=== PATIENT | male | born 1975 | race Caucasian/White ===

== ENCOUNTER 2017-01-01 00:48 | Emergency (ER) | payer SELFPAY ==
[~2017-01-01] VITALS: Ht 167.6 cm; Wt 100.0 kg
[~2017-01-01 00:48] MED LIST: CHLO.12%30 SSP; GLYB5TAB3 PO; IBUP600T26 PO; PENI500T PO
[2017-01-01 00:50] VITALS: BP 134/96; PULSE 104; RESP 20; TEMP 97.5; O2SAT 98
[2017-01-01 02:21] VITALS: BP 131/83; PULSE 100; RESP 16; TEMP 98; O2SAT 97
[2017-01-01] MEDS ORDERED: SODIUM CHLOR 0.9% 1000 ML INJ 1,000 ML IV SCH (02:57)
[2017-01-01] MEDS ORDERED: SODIUM CHLORIDE 0.9% FLUSH 10 ML FLUSH IV FLUSH PRN (03:00)
[2017-01-01] MEDS ORDERED: ONDANSETRON HCL 4 MG/2 ML VIAL IVP ONE (03:00)
[2017-01-01] MEDS ORDERED: FAMOTIDINE 20 MG/2 ML VIAL IV PUSH ONE (03:00)
[2017-01-01 03:34] LABS: BLOOD, URINE NEG (NEG); COMMENT (UR) CULT NOT INDICATED; CULTURE IF INDICATED CULT NOT INDICATED; GLUCOSE,URINE 1000 mg/dL (NEG); KETONE, URINE 40 mg/dL (NEG); MUCUS URINE FEW /lpf (OCC); NITRITE,URINE NEG (NEG); URINE COLOR YELLOW (YELLW/STRAW)
[2017-01-01 03:35] LABS: AUTOMATED NEUTROPHIL # 6.6 TH/MM3 (1.8-7.7); BASOPHIL # 0.1 TH/MM3 (0-0.2); BASOPHIL % 0.8 % (0.0-2.0); EOSINOPHIL % 0.5 % (0.0-4.0); HEMATOCRIT 51.9 % (39.0-51.0); HEMO FLAGS DIFF FINAL; LYMPH % 13.9 % (9.0-44.0); LYMPHOCYTE # 1.2 TH/MM3 (1.0-4.8); MEAN CELL VOLUME 81.9 FL (80.0-100.0); MEAN CORPUSCULAR HEMOGLOBIN 28.7 PG (27.0-34.0); MEAN CORPUSCULAR HGB CONC 35.1 % (32.0-36.0); MONO % 7.4 % (0.0-8.0); NEUT % 77.4 % (16.0-70.0); PLATELET COUNT 259 TH/MM3 (150-450); RED BLOOD COUNT 6.34 MIL/MM3 (4.50-5.90); RED CELL DISTRIBUTION WIDTH 12.8 % (11.6-17.2); WHITE BLOOD COUNT 8.6 TH/MM3 (4.0-11.0)
[2017-01-01 03:39] LABS: APTT (PATIENT) 26.4 SEC (24.3-30.1); INTERNATIONAL NORMALIZED RATIO 1.1 RATIO; PROTHROMBIN TIME - PATIENT 11.8 SEC (9.8-11.6)
[2017-01-01 03:45] LABS: BICARBONATE 27.6 MEQ/L (21.0-32.0); POTASSIUM 3.5 MEQ/L (3.5-5.1)
[2017-01-01 03:47] LABS: INDIRECT BILIRUBIN 1.2 MG/DL (0.0-0.8); TOTAL BILIRUBIN ADULT 1.3 MG/DL (0.2-1.0)
[2017-01-01] MEDS ORDERED: IOHEXOL 350 MG/ML 10 ML VIAL (for RAD DIAG) IV ONE (04:21)
[2017-01-01] MEDS ORDERED: SODIUM CHLOR 0.9% 1000 ML INJ 1,000 ML IV ONE (04:30)
[2017-01-01 04:53] VITALS: BP 135/83; PULSE 80; RESP 18; TEMP 98.3; O2SAT 95
--- NOTE | 2017-01-01 05:04 | RADRPT ---
EXAM DATE/TIME: 01/01/2017 04:04 [place] COMPARISON: No previous studies available for comparison. INDICATIONS : Abdominal pain with nausea vomiting and diarrhea for five days IV CONTRAST: 100 cc Omnipaque 350 (iohexol) IV ORAL CONTRAST: No oral contrast ingested. RADIATION DOSE: 10.16 CTDIvol (mGy) MEDICAL HISTORY : Diabetes mellitus type 2. Essential tremors. SURGICAL HISTORY : Appendectomy. ENCOUNTER: Initial ACUITY: 4 - 6 days PAIN SCALE: 7/10 LOCATION: Diffuse abdomen TECHNIQUE: Volumetric scanning of the abdomen and pelvis was performed. Using automated exposure control and ad justment of the mA and/or kV according to patient size, radiation dose was kept as low as reasonably achievable to obtain optimal diagnostic quality images. FINDINGS: Lung bases are clear. There is mild fatty liver. Spleen, adrenals, kidneys and pancreas are unremarka ble. No calcified gallstones. No biliary ductal dilatation. Small hiatal hernia. There is a loop of small bowel in the left upper quadrant that is dilated to 3.5 cm with an air-fluid level. Other small bowel loops in the left upper quadrant are not as dilated. Distal small bowel is normal caliber. There is gas within the colon. No free fluid or free air. Small fat containing umbili amina hernia. CONCLUSION: 1. Mildly dilated loop of small bowel in the left upper quadrant with a diameter of 3.5 cm with an ai r-fluid level. Etiology unclear. This could represent a localized ileus. No inflammatory changes are seen within the abdomen and pelvis. No free air or free fluid. 2. Mild fatty liver. Small hiatal hernia. Small fat containing umbilical hernia. Luisito Calderon MD on January 01, 2017 at 4:53 Board Certified Radiologist. This report was verified electronically.
[2017-01-01] MEDS ORDERED: ONDANSETRON HCL 4 MG/2 ML VIAL IV PUSH ONE (05:45)
--- NOTE | 2017-01-01 06:08 | PD ---
HPI Chief Complaint: GI Complaint Time Seen by Provider: 02:36 Travel History International Travel<30 days: No Contact w/Intl Traveler<30days: No Traveled to known affect area: No History of Present Illness HPI Patient is a 41-year-old male comes in complaining of nausea and vomiting for the past 4 days. He says he has had a few bowel movements in the past 4 days and they have been diarrhea. He denies any abdominal pain, but says he's been having cramps. His reports that he has had a temperature of 99.6. He denies any chest pain or shortness of breath. He has history of diabetes, but is managing it with diet and exercise. PFSH Past Medical History Diabetes: Yes Patient Takes Glucophage: No Diminished Hearing: No Immunizations Current: Yes Tetanus Vaccination: < 5 Years Influenza Vaccination: No Past Surgical History Appendectomy: Yes Social History Alcohol Use: No Tobacco Use: Yes Substance Use: No Allergies-Medications (Allergen,Severity, Reaction): Coded Allergies: Glucophage (Verified Allergy, Severe, VOMITING, 01/01/17) Reported Meds & Prescriptions Reported Meds & Active Scripts Active Zofran Odt (Ondansetron Odt) 4 Mg Tab 4 Mg SL Q6HR PRN Review of Systems Except as stated in HPI: all other systems reviewed are Neg General / Constitutional: Positive: Fever HENT: No: Headaches, Lightheadedness Cardiovascular: No: Chest Pain or Discomfort Respiratory: No: Shortness of Breath Gastrointestinal: Positive: Nausea, Vomiting, Diarrhea Genitourinary: No: Dysuria, Flank Pain Musculoskeletal: No: Edema, Pain Skin: No Rash, No Change in Pigmentation Neurologic: No: Weakness, Dizziness Physical Exam Narrative GENERAL: Awake and alert, in no acute distress. SKIN: Focused skin assessment warm/dry. HEAD: Atraumatic. Normocephalic. EYES: Pupils equal and round. No scleral icterus. ENT: Mucous membranes pink and moist. NECK: Trachea midline. No JVD. CARDIOVASCULAR: Regular rate and rhythm. No murmur appreciated. RESPIRATORY: No accessory muscle use. Clear to auscultation. Breath sounds equal bilaterally. GASTROINTESTINAL: Abdomen soft, non-tender, nondistended. No CVA tenderness. MUSCULOSKELETAL: No obvious deformities. No clubbing. No cyanosis. No edema. NEUROLOGICAL: Awake and alert. No obvious cranial nerve deficits. Motor grossly within normal limits. Normal speech. PSYCHIATRIC: Appropriate mood and affect; insight and judgment normal. Data Data Last Documented VS Vital Signs Date Time Temp Pulse Resp B/P Pulse Ox O2 Delivery O2 Flow Rate FiO2 01/01/17 06:53 98.0 144/68 97 01/01/17 04:53 80 18 Room Air Orders Basic Metabolic Panel (Bmp) (01/01/17 02:57) Complete Blood Count With Diff (01/01/17 02:57) Lipase (01/01/17 02:57) Prothrombin Time / Inr (Pt) (01/01/17 02:57) Act Partial Throm Time (Ptt) (01/01/17 02:57) Urinalysis - C+S If Indicated (01/01/17 02:57) Ua Includes Microscopic (01/01/17 02:57) Ct Abd/Pel W Iv Contrast(Rout) (01/01/17 02:57) Iv Access Insert/Monitor (01/01/17 02:57) Ecg Monitoring (01/01/17 02:57) Oximetry (01/01/17 02:57) Ondansetron Inj (Zofran Inj) (01/01/17 03:00) Sodium Chlor 0.9% 1000 Ml Inj (Ns 1000 M (01/01/17 02:57) Sodium Chloride 0.9% Flush (Ns Flush) (01/01/17 03:00) Famotidine Inj (Pepcid Inj) (01/01/17 03:00) Hepatic Functional Panel (01/01/17 02:57) Iohexol 350 Inj (Omnipaque 350 Inj) (01/01/17 04:21) Sodium Chlor 0.9% 1000 Ml Inj (Ns 1000 M (01/01/17 04:30) Ondansetron Inj (Zofran Inj) (01/01/17 05:45) Labs Laboratory Tests Test 01/01/17 01/01/17 03:00 03:15 White Blood Count 8.6 TH/MM3 Red Blood Count 6.34 MIL/MM3 Hemoglobin 18.2 GM/DL Hematocrit 51.9 % Mean Corpuscular Volume 81.9 FL Mean Corpuscular Hemoglobin 28.7 PG Mean Corpuscular Hemoglobin 35.1 % Concent Red Cell Distribution Width 12.8 % Platelet Count 259 TH/MM3 Mean Platelet Volume 9.0 FL Neutrophils (%) (Auto) 77.4 % Lymphocytes (%) (Auto) 13.9 % Monocytes (%) (Auto) 7.4 % Eosinophils (%) (Auto) 0.5 % Basophils (%) (Auto) 0.8 % Neutrophils # (Auto) 6.6 TH/MM3 Lymphocytes # (Auto) 1.2 TH/MM3 Monocytes # (Auto) 0.6 TH/MM3 Eosinophils # (Auto) 0.0 TH/MM3 Basophils # (Auto) 0.1 TH/MM3 CBC Comment DIFF FINAL Differential Comment Prothrombin Time 11.8 SEC Prothromb Time International 1.1 RATIO Ratio Activated Partial 26.4 SEC Thromboplast Time Sodium Level 131 MEQ/L Potassium Level 3.5 MEQ/L Chloride Level 95 MEQ/L Carbon Dioxide Level 27.6 MEQ/L Anion Gap 8 MEQ/L Blood Urea Nitrogen 10 MG/DL Creatinine 0.90 MG/DL Estimat Glomerular Filtration 93 ML/MIN Rate Random Glucose 272 MG/DL Calcium Level 9.5 MG/DL Total Bilirubin 1.3 MG/DL Direct Bilirubin 0.1 MG/DL Indirect Bilirubin 1.2 MG/DL Aspartate Amino Transf 13 U/L (AST/SGOT) Alanine Aminotransferase 42 U/L (ALT/SGPT) Alkaline Phosphatase 115 U/L Total Protein 7.5 GM/DL Albumin 4.2 GM/DL Lipase 71 U/L Urine Color YELLOW Urine Turbidity CLEAR Urine pH 6.0 Urine Specific [place] 1.027 Urine Protein 30 mg/dL Urine Glucose (UA) 1000 mg/dL Urine Ketones 40 mg/dL Urine Occult Blood NEG Urine Nitrite NEG Urine Bilirubin NEG Urine Urobilinogen 2.0 MG/DL Urine Leukocyte Esterase NEG Urine WBC 2 /hpf Urine Mucus FEW /lpf Microscopic Urinalysis Comment CULT NOT INDICATED MDM Medical Decision Making Medical Screen Exam Complete: Yes Emergency Medical Condition: Yes Differential Diagnosis Gastroenteritis versus gastroparesis versus [place] as versus gastritis versus cholecystitis Narrative Course Patient is a 41-year-old male who comes in complaining of nausea, vomiting, diarrhea. Exam shows no acute abnormalities. IV established, labs sent. Labs show hemoglobin of 18, suggesting the patient is quite dehydrated. Glucose is 272. Patient given 2 L IV fluids. Given Zofran. Given famotidine. CT abdomen and pelvis performed shows one dilated loop of small bowel suggesting possible small area of ileus. There are no other abnormalities. Patient is passing gas and moving his bowels. He reports feeling better, but still with some nausea. Given second dose of Zofran. Reports feeling much better. Is drinking Gatorade without vomiting. will discharge with prescription for Zofran. Advised to drink plenty of fluids. Advised to eat a bland diet. Advised to follow up with his doctor. Advised to return to the ED as needed for any worsening symptoms. Diagnosis Primary Impression: Nausea & vomiting Qualified Code: R11.2 - Non-intractable vomiting with nausea, unspecified vomiting type Referrals: [facility] call for appointment Patient Instructions: Acute Nausea and Vomiting (ED), Diabetic Hyperglycemia ( ED), General Instructions Additional Instructions: Drink plenty of fluids. If you are hungry, eat a bland diet. Follow up with a primary care doctor. Return to the ED as needed for any worsening symptoms. Scripts Ondansetron Odt (Zofran Odt)4 Mg Tab4 Mg SL Q6HR PRN (Nausea/Vomiting) #12 TAB Ref 0 Prov:Darby Weinstein MD 01/01/17 Disposition: 01 DISCHARGE HOME Condition: Stable Darby Weinstein MD Jan 01, 2017 06:08
[2017-01-01] MEDS ORDERED: ZOFR4TAB3 SL (06:28)
[2017-01-01 06:53] VITALS: BP 144/68; TEMP 98
== END 2017-01-01 06:54 | disposition home or self-care (01) ==
LOC: NEPC 00:48
DX: R11.2 Nausea with vomiting, unspecified (principal); R19.7 Diarrhea, unspecified; E11.9 Type 2 diabetes mellitus without complications; Z72.0 Tobacco use
CPT/HCPCS: 74177; 80048; 80076; 81001; 83690; 85025; 85610; 85730; 96374; 96375; 96376; 99284; J2405; J7030; Q9967

== ENCOUNTER 2017-01-04 23:28 | Emergency (ER) | payer SELFPAY ==
[~2017-01-04] VITALS: Ht 162.6 cm; Wt 93.0 kg
[~2017-01-04 23:28] MED LIST changes: -CHLO.12%30 SSP; -GLYB5TAB3 PO; -IBUP600T26 PO; -PENI500T PO; +ZOFR4TAB3 SL
[2017-01-04 23:32] VITALS: BP 139/90; PULSE 102; RESP 16; TEMP 98.3; O2SAT 96
[2017-01-05] MEDS ORDERED: SODIUM CHLOR 0.9% 1000 ML INJ 1,000 ML IV SCH (00:11)
[2017-01-05] MEDS ORDERED: ONDANSETRON HCL 4 MG/2 ML VIAL IVP ONE (00:15)
[2017-01-05] MEDS ORDERED: SODIUM CHLORIDE 0.9% FLUSH 10 ML FLUSH IV FLUSH PRN (00:15)
[2017-01-05] MEDS ORDERED: DICYCLOMINE HCL 20 MG/2 ML VIAL IM ONE (00:15)
[2017-01-05 00:35] VITALS: O2SAT 96
[2017-01-05 00:36] LABS: AUTOMATED NEUTROPHIL # 7.6 TH/MM3 (1.8-7.7); BASOPHIL # 0.1 TH/MM3 (0-0.2); BASOPHIL % 0.6 % (0.0-2.0); EOSINOPHIL % 0.3 % (0.0-4.0); HEMATOCRIT 48.9 % (39.0-51.0); HEMO FLAGS DIFF FINAL; LYMPHOCYTE # 1.4 TH/MM3 (1.0-4.8); MEAN CELL VOLUME 81.8 FL (80.0-100.0); MEAN CORPUSCULAR HEMOGLOBIN 28.6 PG (27.0-34.0); MONO % 6.1 % (0.0-8.0); PLATELET COUNT 241 TH/MM3 (150-450); RED BLOOD COUNT 5.98 MIL/MM3 (4.50-5.90); RED CELL DISTRIBUTION WIDTH 12.8 % (11.6-17.2); WHITE BLOOD COUNT 9.6 TH/MM3 (4.0-11.0)
[2017-01-05] MEDS ORDERED: DICY10 PO (01:15)
[2017-01-05] MEDS ORDERED: REGL10TA5 PO (01:15)
--- NOTE | 2017-01-05 01:16 | PD ---
HPI Chief Complaint: GI Complaint Time Seen by Provider: 23:58 Travel History International Travel<30 days: No Contact w/Intl Traveler<30days: No Traveled to known affect area: No History of Present Illness HPI 41-year-old male arrives complaining of nausea vomiting for about 1 week. He was seen here a few days ago. The workup was essentially unremarkable. He was prescribed Zofran and has been taking it however reports no improvement. Decreased oral intake is reported. He notes vomiting about 10 times today. There is difficulty sleeping because of the nausea and vomiting. He notes sick contacts at work. He also reports feeling gassy. He has past medical history of diabetes. He smokes tobacco. He does not drink alcohol. He denies any drug abuse. Occasional diarrhea is reported. PFSH Past Medical History Diabetes: Yes (BEEN OFF MEDS FOR 3 YEARS) Patient Takes Glucophage: No Diminished Hearing: No Immunizations Current: Yes Past Surgical History Appendectomy: Yes Social History Alcohol Use: No Tobacco Use: Yes (1ppd) Substance Use: No Allergies-Medications (Allergen,Severity, Reaction): Coded Allergies: Glucophage (Verified Allergy, Severe, VOMITING, 01/04/17) Reported Meds & Prescriptions Reported Meds & Active Scripts Active Bentyl (Dicyclomine HCl) 10 Mg Cap 10 Mg PO TID PRN Reglan (Metoclopramide HCl) 10 Mg Tab 10 Mg PO QID PRN Zofran Odt (Ondansetron Odt) 4 Mg Tab 4 Mg SL Q6HR PRN Review of Systems Except as stated in HPI: all other systems reviewed are Neg Gastrointestinal: Positive: Nausea, Vomiting, Diarrhea Physical Exam Narrative GENERAL: 41-year-old male well-nourished well-developed SKIN: Focused skin assessment warm/dry. HEAD: Atraumatic. Normocephalic. EYES: Pupils equal and round. No scleral icterus. No injection or drainage. ENT: No nasal bleeding or discharge. Mucous membranes slightly dry. NECK: Trachea midline. No JVD. CARDIOVASCULAR: Regular rate and rhythm. No murmur appreciated. RESPIRATORY: No accessory muscle use. Clear to auscultation. Breath sounds equal bilaterally. GASTROINTESTINAL: Minimal tenderness. Nonspecific diffuse. MUSCULOSKELETAL: No obvious deformities. No clubbing. No cyanosis. No edema. NEUROLOGICAL: Awake and alert. No obvious cranial nerve deficits. Motor grossly within normal limits. Normal speech. PSYCHIATRIC: Appropriate mood and affect; insight and judgment normal. Data Data Last Documented VS Vital Signs Date Time Temp Pulse Resp B/P Pulse Ox O2 Delivery O2 Flow Rate FiO2 01/05/17 00:35 96 Room Air 01/04/17 23:32 98.3 102 16 139/90 Vital signs reviewed Orders Complete Blood Count With Diff (01/05/17 00:11) Comprehensive Metabolic Panel (01/05/17 00:11) Lipase (01/05/17 00:11) Iv Access Insert/Monitor (01/05/17 00:11) Ecg Monitoring (01/05/17 00:11) Oximetry (01/05/17 00:11) Ondansetron Inj (Zofran Inj) (01/05/17 00:15) Sodium Chlor 0.9% 1000 Ml Inj (Ns 1000 M (01/05/17 00:11) Sodium Chloride 0.9% Flush (Ns Flush) (01/05/17 00:15) Dicyclomine Inj (Bentyl Inj) (01/05/17 00:15) Labs Laboratory Tests Test 01/05/17 00:17 White Blood Count 9.6 TH/MM3 Red Blood Count 5.98 MIL/MM3 Hemoglobin 17.1 GM/DL Hematocrit 48.9 % Mean Corpuscular Volume 81.8 FL Mean Corpuscular Hemoglobin 28.6 PG Mean Corpuscular Hemoglobin 35.0 % Concent Red Cell Distribution Width 12.8 % Platelet Count 241 TH/MM3 Mean Platelet Volume 9.0 FL Neutrophils (%) (Auto) 79.0 % Lymphocytes (%) (Auto) 14.0 % Monocytes (%) (Auto) 6.1 % Eosinophils (%) (Auto) 0.3 % Basophils (%) (Auto) 0.6 % Neutrophils # (Auto) 7.6 TH/MM3 Lymphocytes # (Auto) 1.4 TH/MM3 Monocytes # (Auto) 0.6 TH/MM3 Eosinophils # (Auto) 0.0 TH/MM3 Basophils # (Auto) 0.1 TH/MM3 CBC Comment DIFF FINAL Differential Comment Sodium Level 133 MEQ/L Potassium Level 3.6 MEQ/L Chloride Level 97 MEQ/L Carbon Dioxide Level 26.6 MEQ/L Anion Gap 9 MEQ/L Blood Urea Nitrogen 12 MG/DL Creatinine 0.94 MG/DL Estimat Glomerular Filtration 89 ML/MIN Rate Random Glucose 257 MG/DL Calcium Level 9.2 MG/DL Total Bilirubin 0.9 MG/DL Aspartate Amino Transf 12 U/L (AST/SGOT) Alanine Aminotransferase 37 U/L (ALT/SGPT) Alkaline Phosphatase 113 U/L Total Protein 7.4 GM/DL Albumin 4.5 GM/DL Lipase 97 U/L MDM Medical Decision Making Medical Screen Exam Complete: Yes Emergency Medical Condition: Yes Medical Record Reviewed: Yes Differential Diagnosis Constipation, Gastritis, Acute Cholecystitis, Biliary Colic, Pancreatitis, PARR , Hepatitis, Bowel Obstruction, Cystitis, Mesenteric Ischemia, AAA, Appendicitis , Renal Stone/Hydronephrosis, GERD, perforated viscous Narrative Course CBC & BMP Diagram 01/05/17 00:17 LFTs normal Lipase normal Patient responded well to IV fluids and anti-emetics. Workup is unremarkable. Pt ready for discharge. Diagnosis Primary Impression: Nausea & vomiting Qualified Code: R11.2 - Nausea and vomiting, intractability of vomiting not specified, unspecified vomiting type Referrals: Primary Care Physician 2 days Additional Instructions: You have a choice when it comes to health care, and we are glad that you chose [facility]. Hopefully, we have met your expectations on today's visit. You are welcome to return to [facility] at any time, as we are committed to meeting the health care needs of our community. Med/Other Pt SpecificInfo: Prescription(s) given Scripts Dicyclomine (Bentyl)10 Mg Cap10 Mg PO TID PRN (Bowel Management) #20 CAP Ref 0 Prov:Ty Roa MD 01/05/17 Metoclopramide (Reglan)10 Mg Tab10 Mg PO QID PRN (NAUSEA OR VOMITING) #20 TAB Ref 0 Prov:Ty Roa MD 01/05/17 Disposition: DISCHARGE HOME Condition: Stable Ty Roa MD Jan 05, 2017 01:16
[2017-01-05 01:28] LABS: ALT (GPT) 37 U/L (12-78); ANION GAP 9 MEQ/L (5-15); AST (GOT) 12 U/L (15-37); BICARBONATE 26.6 MEQ/L (21.0-32.0); BLOOD UREA NITROGEN 12 MG/DL (7-18); CHLORIDE 97 MEQ/L (98-107); GLOMERULAR FILTRATION RATE 89 ML/MIN (>89); POTASSIUM 3.6 MEQ/L (3.5-5.1); SODIUM (NA) 133 MEQ/L (136-145)
[2017-01-05 01:30] LABS: ALKALINE PHOSPHATASE 113 U/L (45-117); TOTAL BILIRUBIN ADULT 0.9 MG/DL (0.2-1.0)
== END 2017-01-05 02:37 | disposition home or self-care (01) ==
LOC: NEPC 23:28
DX: R11.2 Nausea with vomiting, unspecified (principal); E11.9 Type 2 diabetes mellitus without complications; F17.200 Nicotine dependence, unspecified, uncomplicated
CPT/HCPCS: 80053; 83690; 85025; 96361; 96372; 96374; 99284; J0500; J2405; J7030

== ENCOUNTER 2017-01-12 20:02 | Emergency (ER) | payer SELFPAY ==
[~2017-01-12] VITALS: Ht 162.6 cm; Wt 92.0 kg
[~2017-01-12 20:02] MED LIST changes: +DICY10 PO; +REGL10TA5 PO
[2017-01-12 20:03] VITALS: BP 149/89; PULSE 102; RESP 18; TEMP 98.2; O2SAT 97
--- NOTE | 2017-01-12 20:32 | PD ---
Physical Exam Date Seen by Provider: Jan 12, 2017 Time Seen by Provider: 20:32 Narrative 41 YOHM C/O ABD PAIN, N/V,CONSTIPATED. SEEN IN ER 1 WEEK AGO FOR THE SAME. H/O DM2 NO F/C,CP/SOB,COUGH. NO DYSURIA OR FREQ VS NOTED. PT AWAITING BED PLACEMENT. Data Data Last Documented VS Vital Signs Date Time Temp Pulse Resp B/P Pulse Ox O2 Delivery O2 Flow Rate FiO2 01/12/17 20:03 98.2 102 18 149/89 97 Room Air [facility] Medical Record Reviewed: Yes Supervised Visit with HERB: Yes Luisito Hutchinson Jan 12, 2017 20:32
[2017-01-12] MEDS ORDERED: SODIUM CHLOR 0.9% 1000 ML INJ 1,000 ML IV SCH (21:25)
[2017-01-12] MEDS ORDERED: SODIUM CHLORIDE 0.9% FLUSH 10 ML FLUSH IV FLUSH PRN (21:30)
[2017-01-12] MEDS ORDERED: DICYCLOMINE HCL 20 MG/2 ML VIAL IM ONE (21:30)
[2017-01-12] MEDS ORDERED: ONDANSETRON HCL 4 MG/2 ML VIAL IVP ONE (21:30)
[2017-01-12 21:44] VITALS: BP 150/93; PULSE 87; RESP 18; TEMP 98.1; O2SAT 100
[2017-01-12 21:52] LABS: BASOPHIL # 0.1 TH/MM3 (0-0.2); BASOPHIL % 0.7 % (0.0-2.0); EOSINOPHIL # 0.1 TH/MM3 (0-0.4); EOSINOPHIL % 0.8 % (0.0-4.0); HEMATOCRIT 47.9 % (39.0-51.0); HEMO FLAGS DIFF FINAL; LYMPHOCYTE # 1.5 TH/MM3 (1.0-4.8); MEAN CELL VOLUME 81.2 FL (80.0-100.0); MEAN CORPUSCULAR HEMOGLOBIN 28.7 PG (27.0-34.0); MEAN CORPUSCULAR HGB CONC 35.3 % (32.0-36.0); MONO % 6.6 % (0.0-8.0); NEUT % 75.9 % (16.0-70.0); PLATELET COUNT 231 TH/MM3 (150-450); RED BLOOD COUNT 5.91 MIL/MM3 (4.50-5.90); RED CELL DISTRIBUTION WIDTH 12.6 % (11.6-17.2); WHITE BLOOD COUNT 9.3 TH/MM3 (4.0-11.0)
[2017-01-12 22:14] LABS: ANION GAP 10 MEQ/L (5-15); AST (GOT) 16 U/L (15-37); BICARBONATE 27.5 MEQ/L (21.0-32.0); BLOOD UREA NITROGEN 6 MG/DL (7-18); CHLORIDE 96 MEQ/L (98-107); GLOMERULAR FILTRATION RATE 96 ML/MIN (>89); POTASSIUM 3.7 MEQ/L (3.5-5.1); SODIUM (NA) 133 MEQ/L (136-145)
[2017-01-12 22:18] LABS: ALKALINE PHOSPHATASE 106 U/L (45-117); ALT (GPT) 41 U/L (12-78); TOTAL BILIRUBIN ADULT 0.5 MG/DL (0.2-1.0)
[2017-01-12] MEDS ORDERED: DICY10 PO (22:38)
[2017-01-12] MEDS ORDERED: GLYB5TAB3 PO ×2 (22:38→22:40)
[2017-01-12] MEDS ORDERED: REGL10TA5 PO (22:38)
--- NOTE | 2017-01-12 22:40 | PD ---
HPI Chief Complaint: Abdominal Pain Time Seen by Provider: 20:51 Travel History International Travel<30 days: No Contact w/Intl Traveler<30days: No Traveled to known affect area: No History of Present Illness HPI So 41 year-old man presents emergency department complaining of nausea vomiting abdominal pain and some constipation. He states symptoms are worse after eating. His tachycardia diabetes but has not been on any of his medications. He was seen twice in the past several days for this. A CT scan that showed some nonspecific changes but was otherwise unremarkable. Labs are also been unremarkable. History Past Medical History Narrative Medical Diabetes Tetanus Vaccination: < 5 Years Influenza Vaccination: No Social History Alcohol Use: No Tobacco Use: Yes (1ppd) Allergies-Medications (Allergen,Severity, Reaction): Coded Allergies: Glucophage (Verified Allergy, Severe, VOMITING, 01/12/17) Reported Meds & Prescriptions Reported Meds & Active Scripts Active Bentyl (Dicyclomine HCl) 10 Mg Cap 10 Mg PO TID PRN Reglan (Metoclopramide HCl) 10 Mg Tab 10 Mg PO QID PRN Zofran Odt (Ondansetron Odt) 4 Mg Tab 4 Mg SL Q6HR PRN Review of Systems Except as stated in HPI: all other systems reviewed are Neg Physical Exam Narrative GENERAL: Well-appearing 41-year-old man, no acute distress. SKIN: Focused skin assessment warm/dry. HEAD: Atraumatic. Normocephalic. CARDIOVASCULAR: Regular rate and rhythm. No murmur appreciated. RESPIRATORY: No accessory muscle use. Clear to auscultation. Breath sounds equal bilaterally. GASTROINTESTINAL: Abdomen is obese and soft. There is no significant tenderness to palpation. No rebound or guarding. MUSCULOSKELETAL: No obvious deformities. Data Data Last Documented VS Vital Signs Date Time Temp Pulse Resp B/P Pulse Ox O2 Delivery O2 Flow Rate FiO2 01/12/17 21:44 98.1 87 18 150/93 100 Room Air Orders Complete Blood Count With Diff (01/12/17 21:25) Comprehensive Metabolic Panel (01/12/17 21:25) Lipase (01/12/17 21:25) Iv Access Insert/Monitor (01/12/17 21:25) NPO (01/12/17 21:25) Ondansetron Inj (Zofran Inj) (01/12/17 21:30) Sodium Chlor 0.9% 1000 Ml Inj (Ns 1000 M (01/12/17 21:25) Sodium Chloride 0.9% Flush (Ns Flush) (01/12/17 21:30) Dicyclomine Inj (Bentyl Inj) (01/12/17 21:30) Labs Laboratory Tests Test 01/12/17 21:35 White Blood Count 9.3 TH/MM3 Red Blood Count 5.91 MIL/MM3 Hemoglobin 16.9 GM/DL Hematocrit 47.9 % Mean Corpuscular Volume 81.2 FL Mean Corpuscular Hemoglobin 28.7 PG Mean Corpuscular Hemoglobin 35.3 % Concent Red Cell Distribution Width 12.6 % Platelet Count 231 TH/MM3 Mean Platelet Volume 8.7 FL Neutrophils (%) (Auto) 75.9 % Lymphocytes (%) (Auto) 16.0 % Monocytes (%) (Auto) 6.6 % Eosinophils (%) (Auto) 0.8 % Basophils (%) (Auto) 0.7 % Neutrophils # (Auto) 7.0 TH/MM3 Lymphocytes # (Auto) 1.5 TH/MM3 Monocytes # (Auto) 0.6 TH/MM3 Eosinophils # (Auto) 0.1 TH/MM3 Basophils # (Auto) 0.1 TH/MM3 CBC Comment DIFF FINAL Differential Comment Sodium Level 133 MEQ/L Potassium Level 3.7 MEQ/L Chloride Level 96 MEQ/L Carbon Dioxide Level 27.5 MEQ/L Anion Gap 10 MEQ/L Blood Urea Nitrogen 6 MG/DL Creatinine 0.88 MG/DL Estimat Glomerular Filtration 96 ML/MIN Rate Random Glucose 200 MG/DL Calcium Level 9.0 MG/DL Total Bilirubin 0.5 MG/DL Aspartate Amino Transf 16 U/L (AST/SGOT) Alanine Aminotransferase 41 U/L (ALT/SGPT) Alkaline Phosphatase 106 U/L Total Protein 7.2 GM/DL Albumin 3.9 GM/DL Lipase 102 U/L [facility] Medical Decision Making Medical Screen Exam Complete: Yes Emergency Medical Condition: Yes Interpretation(s) LABS: CBC unremarkable. CMP remarkable for mildly LIPASE is normal Differential Diagnosis Gastroparesis, hepatobiliary disease, pancreatitis, other Narrative Course Medical decision making Is a 41-year-old man presents emergent from nausea vomiting and post prandial abdominal pain. He states he had a lot of success with the Reglan and Bentyl. He still having worsening symptoms so. I think is probably his gastroparesis. He is not any medicine for his blood sugar now. We'll place him back on glyburide, continue Bentyl and Reglan. Diagnosis Primary Impression: Nausea & vomiting Additional Impression: Type II diabetes mellitus Patient Instructions: General Instructions Additional Instructions: Continue Reglan 30 minutes before meals. Use Bentyl as needed for abdominal cramping. Take glyburide as prescribed. Follow-up with patient assistance for referral for primary care evaluation. Med/Other Pt SpecificInfo: Prescription(s) given Scripts Glyburide 5 Mg Tab5 Mg PO DAILY #60 TAB Ref 2 Take with meals at the same time each day Prov:Miah Juarez MD 01/12/17 Dicyclomine (Bentyl)10 Mg Cap10 Mg PO TID PRN (Bowel Management) #30 CAP Ref 0 Prov:Miah Juarez MD 01/12/17 Metoclopramide (Reglan)10 Mg Tab10 Mg PO TIDAC PRN (NAUSEA OR VOMITING) #90 TAB Ref 2 Prov:Miah Juarez MD 01/12/17 Disposition: 01 DISCHARGE HOME Condition: Stable Miah Juarez MD Jan 12, 2017 22:40
[2017-01-12 23:08] VITALS: BP 132/78; PULSE 94; RESP 18; O2SAT 100
== END 2017-01-12 23:16 | disposition home or self-care (01) ==
LOC: NEPC 20:02
DX: R11.2 Nausea with vomiting, unspecified (principal); E11.9 Type 2 diabetes mellitus without complications; Z72.0 Tobacco use
CPT/HCPCS: 80053; 83690; 85025; 96372; 96374; 99284; J0500; J2405; J7030

== ENCOUNTER 2017-03-28 07:59 | Emergency (ER) | payer SELFPAY ==
[~2017-03-28] VITALS: Ht 162.6 cm; Wt 105.0 kg
[~2017-03-28 07:59] MED LIST changes: +GLYB5TAB3 PO
[2017-03-28 08:01] VITALS: BP 138/82; PULSE 116; RESP 20; TEMP 98.9; O2SAT 96
--- NOTE | 2017-03-28 08:19 | PD ---
HPI Chief Complaint: Injury Time Seen by Provider: 08:19 Travel History International Travel<30 days: No Contact w/Intl Traveler<30days: No Traveled to known affect area: No History of Present Illness HPI 41-year-old [place] resents emergency Department with injury to the right lateral ankle. Patient states he left his house stepped outside stepped wrong, causing injury to the right lateral ankle. Patient states he had pain and swelling right away. He started on ibuprofen and ice without improvement. His pain currently is an 8 out of 10. He is having difficulty ambulating. He has no numbness or tingling distally. He is allergic to Glucophage. PFSH Past Medical History Diabetes: Yes Diminished Hearing: No Immunizations Current: Yes ?: Not Past Surgical History Appendectomy: Yes Social History Alcohol Use: No Tobacco Use: Yes (1ppd) Substance Use: No Allergies-Medications (Allergen,Severity, Reaction): Coded Allergies: Glucophage (Verified Allergy, Severe, VOMITING, 03/28/17) Reported Meds & Prescriptions Reported Meds & Active Scripts Active Glyburide 5 Mg Tab 5 Mg PO DAILY Take with meals at the same time each day Review of Systems Except as stated in HPI: all other systems reviewed are Neg General / Constitutional: No: Fever Eyes: No: Visual changes HENT: No: Headaches Cardiovascular: No: Chest Pain or Discomfort Respiratory: No: Shortness of Breath Gastrointestinal: No: Abdominal Pain Genitourinary: No: Dysuria Musculoskeletal: Positive: Arthralgias, Limited ROM, Pain Skin: No Rash Neurologic: No: Weakness Psychiatric: No: Depression Endocrine: No: Polydipsia Hematologic/Lymphatic: No: Easy Bruising Physical Exam Narrative GENERAL: Patient is in good spirits in no acute distress. SKIN: Warm and dry. Normal color. Normal turgor. No abrasions or other signs of injury. HEAD: Atraumatic. Normocephalic. EYES: Pupils equal and round. No scleral icterus. No injection or drainage. ENT: No nasal bleeding or discharge. Mucous membranes pink and moist. Pharynx is clear. Airway is patent. NECK: Trachea midline. Supple and nontender. CARDIOVASCULAR: Regular rate and rhythm. RESPIRATORY: No accessory muscle use. Clear to auscultation. Breath sounds equal bilaterally. MUSCULOSKELETAL: Extremities without clubbing, cyanosis, or edema. Patient has obvious swelling to the right medial ankle, with localized tenderness. Range of motion of the right ankle is diminished secondary to pain. Patient has no pain in the right foot. NEUROLOGICAL: Awake and alert. No obvious cranial nerve deficits. Motor grossly within normal limits. Five out of 5 muscle strength in the arms and legs. Normal speech. PSYCHIATRIC: Appropriate mood and affect; insight and judgment normal. Data Data Last Documented VS Vital Signs Date Time Temp Pulse Resp B/P Pulse Ox O2 Delivery O2 Flow Rate FiO2 03/28/17 08:01 98.9 116 20 138/82 96 Room Air Orders Ankle, Complete ([id number]) (03/28/17 08:20) Ice/Cold Pack (03/28/17 08:20) MDM Medical Decision Making Medical Screen Exam Complete: Yes Emergency Medical Condition: Yes Differential Diagnosis Right ankle sprain. Right ankle pain. Right ankle swelling. Possible fracture. Narrative Course X-rays of the right ankle and ice pack is ordered. X-ray shows no acute fracture. Patient is placed in a stirrup ankle splint which should be worn until better. Patient is given crutches to use as needed. Patient is given ibuprofen 600 mg 4 times a day #40. Patient is to rest and elevate as much as possible and apply ice frequently. Patient is to follow-up with primary care physician or return to emergency department if symptoms do not improve. Work note is given with restrictions. Diagnosis Primary Impression: Right ankle sprain Qualified Code: S93.401A - Sprain of right ankle, unspecified ligament, initial encounter Patient Instructions: Ankle Sprain (ED), Ankle Sprain Exercises (GEN), Ankle Stirrup Splint (ED), Crutch Instructions (ED), General Instructions Departure Forms: Work Release Enter return to work date: Mar 29, 2017 Special Instructions: Limited walking for the next 7-10 days. Patient is to use ankle splint and crutches as needed. Additional Instructions: X-ray shows no acute fracture. Patient is placed in a stirrup ankle splint which should be worn until better. Patient is given crutches to use as needed. Patient is given ibuprofen 600 mg 4 times a day #40. Patient is to rest and elevate as much as possible and apply ice frequently. Patient is to follow-up with primary care physician or return to emergency department if symptoms do not improve. Work note is given with restrictions. Med/Other Pt SpecificInfo: Prescription(s) given Disposition: 01 DISCHARGE HOME Condition: Stable Mike Emerson Mar 28, 2017 08:19
--- NOTE | 2017-03-28 09:07 | RADRPT ---
EXAM DATE/TIME: 03/28/2017 08:33 [facility] COMPARISON: No previous studies available for comparison. INDICATIONS : Right ankle pain, fall down stairs. MEDICAL HISTORY : None. SURGICAL HISTORY : None. ENCOUNTER: Initial ACUITY: 2 days PAIN SCORE: 7/10 LOCATION: Right lateral ankle FINDINGS: There is soft tissue swelling of the right ankle. No acute bony abnormalities identified. CONCLUSION: Soft tissue swelling right ankle. No acute bony abnormality. Luisito Calderon MD on March 28, 2017 at 9:03 Board Certified Radiologist. This report was verified electronically.
[2017-03-28] MEDS ORDERED: IBUP-232 PO (09:18)
== END 2017-03-28 09:31 | disposition home or self-care (01) ==
LOC: NEPK 07:59
DX: S93.401A Sprain of unspecified ligament of right ankle, initial encounter (principal); W10.9XXA Fall (on) (from) unspecified stairs and steps, initial encounter; Y92.009 Unspecified place in unspecified non-institutional (private) residence as the place of occurrence of the external cause
CPT/HCPCS: 73610; 99283; E0113; L1906

== ENCOUNTER 2017-07-30 12:44 | Emergency (ER) | payer SELFPAY ==
[~2017-07-30] VITALS: Ht 162.6 cm; Wt 106.5 kg
[~2017-07-30 12:44] MED LIST changes: -DICY10 PO; +IBUP-232 PO; -REGL10TA5 PO; -ZOFR4TAB3 SL
[2017-07-30 12:45] VITALS: BP 132/82; PULSE 102; RESP 20; TEMP 98; O2SAT 97
[2017-07-30] MEDS ORDERED: SODIUM CHLOR 0.9% 1000 ML INJ 1,000 ML IV SCH (13:06)
--- NOTE | 2017-07-30 13:13 | PD ---
HPI Chief Complaint: Abdominal Pain Time Seen by Provider: 13:06 Travel History International Travel<30 days: No Contact w/Intl Traveler<30days: No Traveled to known affect area: No History of Present Illness HPI Patient comes in complaining of generalized abdominal cramping began 2 days ago. Patient reports associated nausea, vomiting, and diarrhea. Patient reports subjective fevers. Patient denies any chest pain, shortness of breath, back pain, headache, dizziness, numbness or tingling anywhere, or change in vision. Patient denies any blood in the vomit or stool. Reports vomit is nonbilious. Denies any recent antibiotic use. Patient does report is been out of his diabetic medicine for 4 days. Denies anything making his symptoms better or worse. PFSH Past Medical History Diabetes: Yes Patient Takes Glucophage: Yes (glipride ) Diminished Hearing: No Immunizations Current: No Influenza Vaccination: No Past Surgical History Appendectomy: Yes Social History Alcohol Use: No Tobacco Use: Yes (1ppd) Substance Use: No Allergies-Medications (Allergen,Severity, Reaction): Coded Allergies: metformin (Unverified Allergy, Severe, VOMITING, 07/30/17) Reported Meds & Prescriptions Reported Meds & Active Scripts Active Glyburide 5 Mg Tab 5 Mg PO DAILY Take with meals at the same time each day Ibuprofen 600 Mg Tab 600 Mg PO Q6H PRN Review of Systems Except as stated in HPI: all other systems reviewed are Neg Physical Exam Narrative GENERAL: Well-developed, overly nourished, in no acute distress, and non-ill appearing. SKIN: Focused skin assessment warm and dry. HEAD: Atraumatic. Normocephalic. EYES: Pupils equal and round. EOMI. No scleral icterus. No injection or drainage. ENT: No nasal bleeding or discharge. Mucous membranes pink and moist. NECK: Trachea midline. Supple. No nuclear rigidity. CARDIOVASCULAR: Regular rate and rhythm. No murmur appreciated. RESPIRATORY: No accessory muscle use. No respiratory distress. Clear to auscultation. Breath sounds equal bilaterally. GASTROINTESTINAL: Abdomen soft, non-tender, nondistended, and no guarding. Hepatic and splenic margins not palpable. Normal bowel sounds 4. No pulsatile mass. MUSCULOSKELETAL: No obvious deformities. No clubbing. No cyanosis. No edema. Full range of motion. NEUROLOGICAL: Awake and alert. No obvious cranial nerve deficits. Motor grossly within normal limits. Normal speech. PSYCHIATRIC: Appropriate mood and affect; insight and judgment normal. Data Data Last Documented VS Vital Signs Date Time Temp Pulse Resp B/P (MAP) Pulse Ox O2 Delivery O2 Flow Rate FiO2 07/30/17 16:04 07/30/17 13:03 18 07/30/17 12:45 98.0 102 97 Room Air Orders Orders Complete Blood Count With Diff (07/30/17 13:06) Comprehensive Metabolic Panel (07/30/17 13:06) Lipase (07/30/17 13:06) Prothrombin Time / Inr (Pt) (07/30/17 13:06) Act Partial Throm Time (Ptt) (07/30/17 13:06) Abdomen, Flat & Upright (07/30/17 ) Iv Access Insert/Monitor (07/30/17 13:06) Ecg Monitoring (07/30/17 13:06) Oximetry (07/30/17 13:06) Ondansetron Inj (Zofran Inj) (07/30/17 13:15) Sodium Chlor 0.9% 1000 Ml Inj (Ns 1000 M (07/30/17 13:06) Sodium Chloride 0.9% Flush (Ns Flush) (07/30/17 13:15) Electrocardiogram (07/30/17 13:06) Chest, Single Ap (07/30/17 13:06) Beta Hydroxybutyrate (Acetone) (07/30/17 13:06) Influenzae A/B Antigen (07/30/17 13:06) Ed Discharge Order (07/30/17 15:24) Labs Laboratory Tests Test 07/30/17 13:16 White Blood Count 6.6 TH/MM3 Red Blood Count 5.92 MIL/MM3 Hemoglobin 17.3 GM/DL Hematocrit 49.3 % Mean Corpuscular Volume 83.3 FL Mean Corpuscular Hemoglobin 29.2 PG Mean Corpuscular Hemoglobin Concent 35.1 % Red Cell Distribution Width 12.9 % Platelet Count 210 TH/MM3 Mean Platelet Volume 8.8 FL Neutrophils (%) (Auto) 70.1 % Lymphocytes (%) (Auto) 21.6 % Monocytes (%) (Auto) 6.8 % Eosinophils (%) (Auto) 0.9 % Basophils (%) (Auto) 0.6 % Neutrophils # (Auto) 4.6 TH/MM3 Lymphocytes # (Auto) 1.4 TH/MM3 Monocytes # (Auto) 0.4 TH/MM3 Eosinophils # (Auto) 0.1 TH/MM3 Basophils # (Auto) 0.0 TH/MM3 CBC Comment DIFF FINAL Differential Comment Prothrombin Time 10.3 SEC Prothromb Time International Ratio 0.9 RATIO Activated Partial Thromboplast Time 25.9 SEC Blood Urea Nitrogen 13 MG/DL Creatinine 1.10 MG/DL Random Glucose 229 MG/DL Total Protein 7.5 GM/DL Albumin 4.1 GM/DL Calcium Level 8.8 MG/DL Alkaline Phosphatase 121 U/L Aspartate Amino Transf (AST/SGOT) 17 U/L Alanine Aminotransferase (ALT/SGPT) 34 U/L Total Bilirubin 0.6 MG/DL Sodium Level 135 MEQ/L Potassium Level 3.8 MEQ/L Chloride Level 101 MEQ/L Carbon Dioxide Level 24.9 MEQ/L Anion Gap 9 MEQ/L Estimat Glomerular Filtration Rate 74 ML/MIN Lipase 66 U/L B-Hydroxybutyrate 0.09 MMOL/L MDM Medical Decision Making Medical Screen Exam Complete: Yes Emergency Medical Condition: Yes Differential Diagnosis Electrolyte abnormality, pancreatitis, gastroparesis, small bowel obstruction, pneumonia, dehydration, other Narrative Course The patient presented with abdominal pain vomiting and diarrhea. The patient appeared comfortable, hydrated and the abdominal exam was unremarkable and minimal to nontender to me, and without defined focal tenderness. Laboratory and radiographic evaluation revealed no significant abnormality. There was no evidence of an acute, surgical abdomen at this time. There was no clinical evidence to support bowel obstruction, cholecystitis/cholelithiasis, pancreatitis, perforation of gastric ulcer, colitis, diverticulitis, bacterial peritonitis, obstruction, volvulus, early appendicitis, or hernial incarceration or strangulation at this time. There was no evidence to support vascular pathology such as AAA, mesenteric ischemia, nor significant GIB. There was also no clinical evidence by history, exam or risk factors to suggest atypical presentation of cardiac disease such as ACS, AMI or atypical angina. No evidence to suggest genitourinary etiology as well. During the course of the ED visit the patient was given IVF, the patient noted improvement. The patient was able to tolerate fluids at discharge. Clinical picture was discussed with the patient, as well as plan of care. The patient was instructed to follow up with their physician. Abdominal pain warnings were discussed with the patient. The patient is to return if worsens, pain worsens or changes, develop fever, inability to tolerate fluids with or without vomiting, unable to establish follow up or as needed. The patient agrees with plan. Patient in no obvious distress upon re-evaluation. Patient states that he has been having this issue for several months intermittently with his abdomen and is unable to find a cause. Patient also requesting a refill of his glyburide along with a work note. All pertinent laboratory/Radiology result(s) discussed with patient. Discussed patient with Dr. Martinez prior to discharge, who is in agreement with plan of care and disposition. Patient was asked if they wanted to speak to my attending, which the patient did not wish to do at this time. Any questions/concerns in reference to patient diagnosis/condition discussed and clarified prior to patient's discharge. Reinforced sheer importance of close follow up with patient's primary physician or primary care clinic. Instructed patient to return to ED immediately, if symptoms return/ worsen. Patient showed understanding of above instructions. Further instructions and recommendations were detailed in discharge paperwork. Patient ambulated without difficulty out of ED at discharge. Diagnosis Primary Impression: Abdominal pain Qualified Codes: R10.9 - Unspecified abdominal pain Additional Impression: Medication refill Referrals: [facility] Patient Instructions: Abdominal Pain (ED), General Instructions, Medication Refill, ED Departure Forms: Work Release Enter return to work date: Aug 01, 2017 Additional Instructions: Follow-up with your primary care physician this week for reevaluation. Follow- up with primary care physician for additional refills of your diabetic medication. Take all medication as prescribed. Return to the emergency department if symptoms get worse. Med/Other Pt SpecificInfo: Prescription(s) given Scripts Glyburide (Glyburide) 5 Mg Tab 5 MG PO DAILY for Blood Sugar Management, #14 TAB 0 Refills Take with meals at the same time each day Prov: Anil Martinez MD 07/30/17 Disposition: 01 DISCHARGE HOME Condition: Stable Jean Wilkins Jul 30, 2017 13:13
[2017-07-30] MEDS ORDERED: ONDANSETRON HCL 4 MG/2 ML VIAL IVP ONE (13:15)
[2017-07-30] MEDS ORDERED: SODIUM CHLORIDE 0.9% FLUSH 10 ML FLUSH IV FLUSH PRN (13:15)
--- NOTE | 2017-07-30 13:59 | RADRPT ---
EXAM DATE/TIME: 07/30/2017 13:34 [facility] COMPARISON: No previous studies available for comparison. INDICATIONS : Dizziness, shortness of breath, weakness, and vomitting. MEDICAL HISTORY : Diabetes mellitus type II. Smoker. SURGICAL HISTORY : Appendectomy. ENCOUNTER: Initial ACUITY: 3 days PAIN SCORE: 0/10 LOCATION: Bilateral chest FINDINGS: A single view of the chest demonstrates the lungs to be symmetrically aerated without evidence of mas s, infiltrate or effusion. The cardiomediastinal contours are unremarkable. Osseous structures are intact. CONCLUSION: The lungs are clear. Lamberto Correa MD on July 30, 2017 at 13:57 Board Certified Radiologist. This report was verified electronically.
--- NOTE | 2017-07-30 14:00 | RADRPT ---
EXAM DATE/TIME: 07/30/2017 13:35 [facility] COMPARISON: No previous studies available for comparison. INDICATIONS : Abdominal pain, vomiting, and weakness. MEDICAL HISTORY : Diabetes mellitus type II. SURGICAL HISTORY : Appendectomy. ENCOUNTER: Initial ACUITY: 1 day PAIN SCORE: 6/10 LOCATION: abdomen FINDINGS: Supine and upright views of the abdomen were performed. The abdominal bowel gas pattern is normal. No air fluid levels are seen. No abnormal masses, calcifications, or organomegaly is seen. The visu alized lower lungs are clear. No evidence of free intraperitoneal gas. The osseous structures are u nremarkable. CONCLUSION: Benign abdomen. Lamberto Correa MD on July 30, 2017 at 13:57 Board Certified Radiologist. This report was verified electronically.
[2017-07-30 14:11] LABS: AUTOMATED NEUTROPHIL # 4.6 TH/MM3 (1.8-7.7); BASOPHIL % 0.6 % (0.0-2.0); EOSINOPHIL # 0.1 TH/MM3 (0-0.4); EOSINOPHIL % 0.9 % (0.0-4.0); HEMATOCRIT 49.3 % (39.0-51.0); HEMOGLOBIN 17.3 GM/DL (13.0-17.0); LYMPH % 21.6 % (9.0-44.0); LYMPHOCYTE # 1.4 TH/MM3 (1.0-4.8); MEAN CELL VOLUME 83.3 FL (80.0-100.0); MEAN CORPUSCULAR HEMOGLOBIN 29.2 PG (27.0-34.0); MEAN CORPUSCULAR HGB CONC 35.1 % (32.0-36.0); MEAN PLATELET VOLUME 8.8 FL (7.0-11.0); MONO % 6.8 % (0.0-8.0); MONOCYTE # 0.4 TH/MM3 (0-0.9); NEUT % 70.1 % (16.0-70.0); PLATELET COUNT 210 TH/MM3 (150-450); RED BLOOD COUNT 5.92 MIL/MM3 (4.50-5.90); RED CELL DISTRIBUTION WIDTH 12.9 % (11.6-17.2); WHITE BLOOD COUNT 6.6 TH/MM3 (4.0-11.0)
[2017-07-30 14:17] LABS: INTERNATIONAL NORMALIZED RATIO 0.9 RATIO; PROTHROMBIN TIME - PATIENT 10.3 SEC (9.8-11.6)
[2017-07-30 14:33] LABS: ALKALINE PHOSPHATASE 121 U/L (45-117); TOTAL BILIRUBIN ADULT 0.6 MG/DL (0.2-1.0); TOTAL PROTEIN 7.5 GM/DL (6.4-8.2)
[2017-07-30 14:46] LABS: ALBUMIN 4.1 GM/DL (3.4-5.0); ALT (GPT) 34 U/L (12-78); AST (GOT) 17 U/L (15-37); BICARBONATE 24.9 MEQ/L (21.0-32.0); BLOOD UREA NITROGEN 13 MG/DL (7-18); CALCIUM 8.8 MG/DL (8.5-10.1); CHLORIDE 101 MEQ/L (98-107); GLOMERULAR FILTRATION RATE 74 ML/MIN (>89); GLUCOSE,RANDOM 229 MG/DL (74-106); LIPASE 66 U/L (73-393); SODIUM (NA) 135 MEQ/L (136-145)
[2017-07-30] MEDS ORDERED: GLYB5TAB3 PO (15:14)
== END 2017-07-30 16:22 | disposition home or self-care (01) ==
LOC: NEPE 12:44
DX: R10.9 Unspecified abdominal pain (principal); R11.10 Vomiting, unspecified; R19.7 Diarrhea, unspecified; F17.200 Nicotine dependence, unspecified, uncomplicated; E11.9 Type 2 diabetes mellitus without complications; Z79.899 Other long term (current) drug therapy; Z88.8 Allergy status to other drugs, medicaments and biological substances
CPT/HCPCS: 71010; 74020; 80053; 82010; 83690; 85025; 85610; 85730; 87804; 96374; 99284; J2405; J7030

== ENCOUNTER 2017-08-18 11:10 | Emergency (ER) | payer SELFPAY ==
[2017-08-18 11:12] VITALS: BP 128/81; PULSE 98; RESP 14; TEMP 98.2; O2SAT 98
[2017-08-18] MEDS ORDERED: GLYB5TAB3 PO (12:25)
--- NOTE | 2017-08-18 12:26 | PD ---
HPI Chief Complaint: Medication Refill Request Time Seen by Provider: 12:24 Travel History International Travel<30 days: No Contact w/Intl Traveler<30days: No Traveled to known affect area: No History of Present Illness HPI 42-year-old male patient with history of diabetes, currently with no primary care provider presents to the emergency department for a refill of his glyburide. Patient ran out of this yesterday. States that he has felt like his blood glucose has been elevated because he has been more irritated. Denies the chest or tightness. No difficulty breathing. No fever or chills. Patient has no other symptoms to report. PFSH Past Medical History Diabetes: Yes Diminished Hearing: No Immunizations Current: No Past Surgical History Appendectomy: Yes Social History Alcohol Use: No Tobacco Use: Yes (1ppd) Substance Use: No Allergies-Medications (Allergen,Severity, Reaction): Coded Allergies: metformin (Unverified Allergy, Severe, VOMITING, 07/30/17) Reported Meds & Prescriptions Reported Meds & Active Scripts Active Glyburide 5 Mg Tab 5 Mg PO DAILY Take with meals at the same time each day Glyburide 5 Mg Tab 5 Mg PO DAILY Take with meals at the same time each day Ibuprofen 600 Mg Tab 600 Mg PO Q6H PRN Review of Systems Except as stated in HPI: all other systems reviewed are Neg Physical Exam Narrative GENERAL: Well-nourished male patient, appears without distress SKIN: Warm and dry. HEAD: Atraumatic. Normocephalic. EYES: Pupils equal and round. No scleral icterus. No injection or drainage. ENT: No nasal bleeding or discharge. Mucous membranes pink and moist. NECK: Trachea midline. CARDIOVASCULAR: Regular rate RESPIRATORY: No accessory muscle use. GASTROINTESTINAL: Abdomen nondistended. MUSCULOSKELETAL: Extremities without clubbing, cyanosis, or edema. No obvious deformities. NEUROLOGICAL: Awake and alert. No obvious cranial nerve deficits. Normal speech. Data Data Last Documented VS Vital Signs Date Time Temp Pulse Resp B/P (MAP) Pulse Ox O2 Delivery O2 Flow Rate FiO2 08/18/17 12:40 08/18/17 11:12 98.2 98 14 98 Orders Orders Ed Discharge Order (08/18/17 12:23) MDM Medical Decision Making Medical Screen Exam Complete: Yes Emergency Medical Condition: Yes Medical Record Reviewed: Yes Differential Diagnosis Med refill versus hyperglycemia versus hypoglycemia versus electrolyte abnormality Narrative Course 42-year-old male presents to the emergency department requesting a refill of his glyburide. Patient appears without distress. Blood glucose of the emergency department is 159. I will give the patient a refill of his glyburide. I have stressed the importance of following up with a primary care provider. He is given resources for this outpatient. He agrees to return immediately with any acute worsening of symptoms. Diagnosis Primary Impression: Medication refill Additional Impression: Diabetes Qualified Codes: E11.8 - Type 2 diabetes mellitus with unspecified complications Referrals: Primary Care Physician Patient Instructions: General Instructions, Medication Refill, ED Additional Instructions: It is important to follow up with a primary care provider Return to ED with acute worsening of symptoms Med/Other Pt SpecificInfo: Prescription(s) given Scripts Glyburide (Glyburide) 5 Mg Tab 5 MG PO DAILY for Blood Sugar Management, #30 TAB 0 Refills Take with meals at the same time each day Prov: Nida Sanchez 08/18/17 Disposition: 01 DISCHARGE HOME Condition: Stable Nida Sanchez Aug 18, 2017 12:25
== END 2017-08-18 12:45 | disposition home or self-care (01) ==
LOC: NEPK 11:10
DX: Z76.0 Encounter for issue of repeat prescription (principal); E11.8 Type 2 diabetes mellitus with unspecified complications; Z72.0 Tobacco use
CPT/HCPCS: 99281

== ENCOUNTER 2017-11-05 08:23 | Emergency (ER) | payer BC ==
[~2017-11-05] VITALS: Ht 165.1 cm; Wt 97.0 kg
[2017-11-05 08:24] VITALS: BP 131/96; PULSE 102; RESP 20; TEMP 98.1; O2SAT 99
[2017-11-05 08:37] VITALS: BP 156/77; PULSE 87; RESP 16; O2SAT 96
--- NOTE | 2017-11-05 09:41 | PD ---
HPI Chief Complaint: Diabetic Time Seen by Provider: 09:23 Travel History International Travel<30 days: No Contact w/Intl Traveler<30days: No Traveled to known affect area: No History of Present Illness HPI 42-year-old male complains of headache, coughing congestion, body ache, nausea. Patient states that the symptoms started yesterday and got worse today. Patient states that headaches mild aching headache in the back of the head. Patient denies any visual change. Patient denies any earaches or sore throat. Patient states that he has mild intermittent dry cough. Patient denies any chest pain or shortness of breath. Patient denies abdominal pain. Patient states that he nausea but no vomiting or diarrhea. Patient complaining of polyuria and polydipsia. Patient has history of diabetes and was on glyburide 5 mg daily. Patient ran out of medication for the past 2 months. PFSH Past Medical History Diabetes: Yes Patient Takes Glucophage: No Diminished Hearing: No Immunizations Current: No Influenza Vaccination: No Past Surgical History Appendectomy: Yes Social History Alcohol Use: No Tobacco Use: Yes Substance Use: No (occas marijuana) Allergies-Medications (Allergen,Severity, Reaction): Coded Allergies: metformin (Unverified Allergy, Severe, VOMITING, 07/30/17) Reported Meds & Prescriptions Reported Meds & Active Scripts Active Glyburide 5 Mg Tab 5 Mg PO DAILY Take with meals at the same time each day Glyburide 5 Mg Tab 5 Mg PO DAILY Take with meals at the same time each day Review of Systems General / Constitutional: Positive: Chills Eyes: No: Visual changes HENT: Positive: Headaches Cardiovascular: No: Chest Pain or Discomfort Respiratory: Positive: Cough Gastrointestinal: Positive: Nausea Genitourinary: No: Dysuria Musculoskeletal: No: Pain Skin: No Rash Neurologic: No: Weakness Psychiatric: No: Depression Endocrine: No: Polydipsia Hematologic/Lymphatic: No: Easy Bruising Physical Exam Narrative GENERAL: Well-nourished, well-developed patient. SKIN: Focused skin assessment warm/dry. HEAD: Normocephalic. EYES: No scleral icterus. No injection or drainage. NECK: Supple, trachea midline. No JVD or lymphadenopathy. CARDIOVASCULAR: Regular rate and rhythm without murmurs, gallops, or rubs. RESPIRATORY: Breath sounds equal bilaterally. No accessory muscle use. Few rhonchi at the left base. GASTROINTESTINAL: Abdomen soft, non-tender, nondistended. MUSCULOSKELETAL: No cyanosis, or edema. BACK: Nontender without obvious deformity. No CVA tenderness. Neurologic exam normal. Data Data Last Documented VS Vital Signs Date Time Temp Pulse Resp B/P (MAP) Pulse Ox O2 Delivery O2 Flow Rate FiO2 11/05/17 11:14 74 17 110/64 (79) 99 Room Air 11/05/17 08:24 98.1 Orders Orders Complete Blood Count With Diff (11/05/17 09:29) Comprehensive Metabolic Panel (11/05/17 09:29) Blood Culture (11/05/17 09:29) Lipase (11/05/17 09:29) Urinalysis - C+S If Indicated (11/05/17 09:29) Magnesium (Mg) (11/05/17 09:29) Beta Hydroxybutyrate (Acetone) (11/05/17 09:29) Phosphorus (Po4) (11/05/17 09:29) Influenzae A/B Antigen (11/05/17 09:29) Chest, Single Ap (11/05/17 09:29) Iv Access Insert/Monitor (11/05/17 09:29) Ecg Monitoring (11/05/17 09:29) Oximetry (11/05/17 09:29) Lactic Acid (11/05/17 09:29) Sodium Chlor 0.9% 1000 Ml Inj (Ns 1000 M (11/05/17 10:00) Labs Laboratory Tests Test 11/05/17 09:30 11/05/17 09:45 White Blood Count 4.0 TH/MM3 Red Blood Count 6.30 MIL/MM3 Hemoglobin 18.3 GM/DL Hematocrit 52.2 % Mean Corpuscular Volume 82.9 FL Mean Corpuscular Hemoglobin 29.1 PG Mean Corpuscular Hemoglobin Concent 35.1 % Red Cell Distribution Width 12.8 % Platelet Count 193 TH/MM3 Mean Platelet Volume 8.2 FL Neutrophils (%) (Auto) 64.8 % Lymphocytes (%) (Auto) 22.3 % Monocytes (%) (Auto) 11.6 % Eosinophils (%) (Auto) 0.7 % Basophils (%) (Auto) 0.6 % Neutrophils # (Auto) 2.6 TH/MM3 Lymphocytes # (Auto) 0.9 TH/MM3 Monocytes # (Auto) 0.5 TH/MM3 Eosinophils # (Auto) 0.0 TH/MM3 Basophils # (Auto) 0.0 TH/MM3 CBC Comment DIFF FINAL Differential Comment Blood Urea Nitrogen 10 MG/DL Creatinine 0.90 MG/DL Random Glucose 181 MG/DL Total Protein 8.5 GM/DL Albumin 4.4 GM/DL Calcium Level 8.6 MG/DL Phosphorus Level 2.5 MG/DL Magnesium Level 2.1 MG/DL Alkaline Phosphatase 130 U/L Aspartate Amino Transf (AST/SGOT) 24 U/L Alanine Aminotransferase (ALT/SGPT) 45 U/L Total Bilirubin 0.5 MG/DL Sodium Level 134 MEQ/L Potassium Level 4.1 MEQ/L Chloride Level 100 MEQ/L Carbon Dioxide Level 26.5 MEQ/L Anion Gap 8 MEQ/L Estimat Glomerular Filtration Rate 93 ML/MIN Lactic Acid Level 1.3 mmol/L Lipase 120 U/L B-Hydroxybutyrate 0.13 MMOL/L Urine Color YELLOW Urine Turbidity CLEAR Urine pH 6.0 Urine Specific [place] 1.029 Urine Protein 30 mg/dL Urine Glucose (UA) 300 mg/dL Urine Ketones 10 mg/dL Urine Occult Blood NEG Urine Nitrite NEG Urine Bilirubin NEG Urine Urobilinogen LESS THAN 2.0 MG/DL Urine Leukocyte Esterase NEG Urine RBC 1 /hpf Urine WBC 1 /hpf Urine Squamous Epithelial Cells <1 /hpf Urine Hyaline Casts 1 /lpf Urine Mucus FEW /lpf Microscopic Urinalysis Comment CULT NOT INDICATED MDM Medical Decision Making Medical Screen Exam Complete: Yes Emergency Medical Condition: Yes Interpretation(s) Last Impressions Chest X-Ray 11/05/17 0935 Signed Impressions: Service Date/Time: Sunday, November 05, 2017 09:49 - CONCLUSION: 1. No acute cardiopulmonary disease. Bryn Hagen MD 1320 3 PM. CBC WBC 4.0 hemoglobin 18.3 hematocrit. 52.2. CMP within normal limit. Lactic acid 1.3. Bicarbonate states 26.3. Glucose 181. Beta hydrocele butyrate 0.13. UA positive for glucose proteins and ketones. Differential Diagnosis Differential diagnosis including hypoglycemia, DKA, viral syndrome, bronchitis, pneumonia, UTI. Narrative Course 42-year-old male with headache, chills, generalized malaise and weakness, nausea , coughing. History of diabetes and out of medication for the past 2 months. Diagnosis Primary Impression: Hyperglycemia Patient Instructions: General Instructions Additional Instructions: Accu-Chek blood sugar daily. Glyburide as directed. Follow-up with personal physician. Return if worse. Med/Other Pt SpecificInfo: Prescription(s) given Scripts Glyburide (Glyburide) 5 Mg Tab 5 MG PO DAILY for Blood Sugar Management, #30 TAB 0 Refills Take with meals at the same time each day Prov: Davie Venegas MD 11/05/17 Disposition: 01 DISCHARGE HOME Condition: Stable Davie Venegas MD Nov 05, 2017 09:41
[2017-11-05] MEDS ORDERED: SODIUM CHLOR 0.9% 1000 ML INJ 1,000 ML IV ONE (10:00)
[2017-11-05 10:04] LABS: AUTOMATED NEUTROPHIL # 2.6 TH/MM3 (1.8-7.7); BASOPHIL % 0.6 % (0.0-2.0); EOSINOPHIL % 0.7 % (0.0-4.0); HEMATOCRIT 52.2 % (39.0-51.0); HEMOGLOBIN 18.3 GM/DL (13.0-17.0); LYMPH % 22.3 % (9.0-44.0); LYMPHOCYTE # 0.9 TH/MM3 (1.0-4.8); MEAN CELL VOLUME 82.9 FL (80.0-100.0); MEAN CORPUSCULAR HEMOGLOBIN 29.1 PG (27.0-34.0); MEAN CORPUSCULAR HGB CONC 35.1 % (32.0-36.0); MEAN PLATELET VOLUME 8.2 FL (7.0-11.0); MONO % 11.6 % (0.0-8.0); MONOCYTE # 0.5 TH/MM3 (0-0.9); NEUT % 64.8 % (16.0-70.0); PLATELET COUNT 193 TH/MM3 (150-450); RED CELL DISTRIBUTION WIDTH 12.8 % (11.6-17.2)
[2017-11-05 10:10] LABS: BILIRUBIN, URINE NEG (NEG); BLOOD, URINE NEG (NEG); GLUCOSE,URINE 300 mg/dL (NEG); HYALINE CAST, URINE 1 /lpf (RARE); KETONE, URINE 10 mg/dL (NEG); MUCUS URINE FEW /lpf (OCC); NITRITE,URINE NEG (NEG); SQUAMOUS EPITHELIAL CELL URINE <1 /hpf (0-5); URINE COLOR YELLOW (YELLW/STRAW); URINE LEUKOCYTE ESTERASE NEG (NEG)
--- NOTE | 2017-11-05 10:15 | RADRPT ---
EXAM DATE/TIME: 11/05/2017 09:49 [facility] COMPARISON: CHEST SINGLE AP, July 30, 2017, 13:34. INDICATIONS : Blood sugar, achey MEDICAL HISTORY : diabetic SURGICAL HISTORY : None. ENCOUNTER: Initial ACUITY: 1 day PAIN SCORE: 0/10 LOCATION: Bilateral chest FINDINGS: A single view of the chest demonstrates the lungs to be symmetrically aerated without evidence of mas s, infiltrate or effusion. The cardiomediastinal contours are stable. Osseous structures are intact . CONCLUSION: 1. No acute cardiopulmonary disease. Bryn Hagen MD on November 05, 2017 at 10:10 Board Certified Radiologist. This report was verified electronically.
[2017-11-05 10:21] LABS: ALBUMIN 4.4 GM/DL (3.4-5.0); ALT (GPT) 45 U/L (12-78); AST (GOT) 24 U/L (15-37); BICARBONATE 26.5 MEQ/L (21.0-32.0); BLOOD UREA NITROGEN 10 MG/DL (7-18); CALCIUM 8.6 MG/DL (8.5-10.1); CHLORIDE 100 MEQ/L (98-107); GLUCOSE,RANDOM 181 MG/DL (74-106); MAGNESIUM 2.1 MG/DL (1.5-2.5); PHOSPHORUS 2.5 MG/DL (2.5-4.9); SODIUM (NA) 134 MEQ/L (136-145)
[2017-11-05 10:34] LABS: ALKALINE PHOSPHATASE 130 U/L (45-117); GLOMERULAR FILTRATION RATE 93 ML/MIN (>89); TOTAL BILIRUBIN ADULT 0.5 MG/DL (0.2-1.0); TOTAL PROTEIN 8.5 GM/DL (6.4-8.2)
[2017-11-05 11:14] VITALS: BP 110/64; PULSE 74; RESP 17; O2SAT 99
[2017-11-05] MEDS ORDERED: GLYB5TAB3 PO (13:28)
== END 2017-11-05 14:00 | disposition home or self-care (01) ==
LOC: NEPC 08:23
DX: E11.65 Type 2 diabetes mellitus with hyperglycemia (principal); R05 Cough; Z72.0 Tobacco use; Z79.84 Long term (current) use of oral hypoglycemic drugs
CPT/HCPCS: 71045; 80053; 81001; 82010; 83605; 83690; 83735; 84100; 85025; 87040; 87804; 96360; 96361; 99284; J7030

== ENCOUNTER 2018-02-17 01:49 | Emergency (ER) | payer BC ==
[~2018-02-17 01:49] MED LIST changes: -IBUP-232 PO
[2018-02-17 01:55] VITALS: BP 181/101; PULSE 95; RESP 18; O2SAT 97
[2018-02-17 02:31] VITALS: BP 135/77; PULSE 84; RESP 16; TEMP 98.2; O2SAT 94
[2018-02-17 02:44] VITALS: O2SAT 95
--- NOTE | 2018-02-17 02:44 | PD ---
HPI Chief Complaint: Abdominal Pain Time Seen by Provider: 02:06 Travel History International Travel<30 days: No Contact w/Intl Traveler<30days: No Traveled to known affect area: No History of Present Illness HPI The patient is a 42 year old male who presents to the [facility] emergency department with a history of abdominal pain that began in the morning after he awakened on Friday. The patient reports that it began as a nauseated sensation that progressively got worse throughout the day. He reports that he then began to have a dull aching sensation in the center of his abdomen. He reports that the pain is coming and going. He reports having nausea and vomiting 2-3 times per day since the onset. He reports having a diminished appetite. He reports having diarrhea twice daily since the onset. He reports that his stool is brown in color. He denies having any blood or mucus in his stool. He denies any recent antibiotic use. He denies having any known sick contacts or unusual food intake. He reports having a subjective fever. He denies having any dysuria, urinary frequency, or urinary urgency. The patient reports that he last checked his blood sugar yesterday morning and it was 180. He is currently on glyburide. On review of systems otherwise, he denies having any recent cough or congestion,neck pain, chest pain, shortness of breath, or neurologic symptoms. [facility] Past Medical History Narrative Medical The patient's past medical history is significant for diabetes mellitus. Diabetes: Yes Patient Takes Glucophage: No Diminished Hearing: No Immunizations Current: No Past Surgical History Narrative Surgical The patient's past surgical history is significant for an appendectomy. Appendectomy: Yes (30 YEARS AGO) Social History Alcohol Use: No Tobacco Use: Yes (1/2 PPD) Substance Use: No Allergies-Medications (Allergen,Severity, Reaction): Coded Allergies: metformin (Unverified Allergy, Severe, VOMITING, 02/17/18) Reported Meds & Prescriptions Reported Meds & Active Scripts Active Zofran Odt (Ondansetron Odt) 4 Mg Tab 4 Mg SL Q6HR PRN Glyburide 5 Mg Tab 5 Mg PO DAILY Take with meals at the same time each day Review of Systems Except as stated in HPI: all other systems reviewed are Neg General / Constitutional: No: Fever Eyes: No: Visual changes HENT: No: Headaches Cardiovascular: No: Chest Pain or Discomfort Respiratory: No: Shortness of Breath Gastrointestinal: Positive: Nausea, Vomiting, Diarrhea, Abdominal Pain, Changes in Bowel Habits, Loss of Appetite, No: Hematemesis, Hematochezia, Indigestion Genitourinary: No: Dysuria Musculoskeletal: No: Pain Skin: No Rash Neurologic: No: Weakness Psychiatric: No: Depression Endocrine: No: Polydipsia Hematologic/Lymphatic: No: Easy Bruising Physical Exam Narrative General: The patient is a well-developed well-nourished male in no acute distress. Head and Neck exam: Head is normocephalic atraumatic. Eyes: EOMI, pupils are equal round and reactive to light. Nose: Midline septum with pink mucous membranes Mouth: Dentition unremarkable. Moist mucus membranes. Posterior oropharynx is not erythematous. No tonsillar hypertrophy. Uvula midline. Airway patent. Neck: No palpable lymphadenopathy. No nuchal rigidity. No thyromegaly. Cardiovascular: Regular rate and rhythm without murmurs, gallops, or rubs. No pulse deficit to the extremities on simultaneous auscultation and palpation of his radial artery. Lungs: Clear to auscultation bilaterally. No wheezes, rhonchi, or rales. Abdomen: Soft, with reported tenderness on palpation that is periumbilical, however no other tenderness on palpation of the other quadrants of the abdomen. The patient has a small umbilical hernia noted on examination that is easily reducible. Normal bowel sounds are audible. No guarding, rebound, or rigidity. Negative Smith sign. No tenderness on palpation of McBurney's point. Extremities: No clubbing, cyanosis, or edema. 2+ pulses in all 4 extremities. No calf tenderness on palpation. Back: No costovertebral angle tenderness to palpation. Neurologic Exam: Grossly nonfocal. Skin Exam: No rash noted. Intact skin that is warm and dry. Data Data Last Documented VS Vital Signs Date Time Temp Pulse Resp B/P (MAP) Pulse Ox O2 Delivery O2 Flow Rate FiO2 02/17/18 02:44 95 02/17/18 02:31 98.2 84 16 Room Air Orders Orders Complete Blood Count With Diff (02/17/18 02:36) Comprehensive Metabolic Panel (02/17/18 02:36) C-Reactive Protein (Crp) (02/17/18 02:36) Lipase (02/17/18 02:36) Urinalysis - C+S If Indicated (02/17/18 02:36) Magnesium (Mg) (02/17/18 02:36) Chest, Single Ap (02/17/18 02:36) Iv Access Insert/Monitor (02/17/18 02:36) Ecg Monitoring (02/17/18 02:36) Oximetry (02/17/18 02:36) Sodium Chlor 0.9% 1000 Ml Inj (Ns 1000 M (02/17/18 02:45) Prochlorperazine Inj (Compazine Inj) (02/17/18 02:45) Sodium Chlor 0.9% 1000 Ml Inj (Ns 1000 M (02/17/18 04:15) Ct Abd/Pel W Iv Contrast(Rout) (02/17/18 04:16) Iohexol 350 Inj (Omnipaque 350 Inj) (02/17/18 05:06) Labs Laboratory Tests Test 02/17/18 02:55 02/17/18 04:35 White Blood Count 9.9 TH/MM3 Red Blood Count 6.50 MIL/MM3 Hemoglobin 18.9 GM/DL Hematocrit 54.0 % Mean Corpuscular Volume 83.2 FL Mean Corpuscular Hemoglobin 29.1 PG Mean Corpuscular Hemoglobin Concent 35.0 % Red Cell Distribution Width 12.7 % Platelet Count 272 TH/MM3 Mean Platelet Volume 8.2 FL Neutrophils (%) (Auto) 78.4 % Lymphocytes (%) (Auto) 13.7 % Monocytes (%) (Auto) 6.8 % Eosinophils (%) (Auto) 0.6 % Basophils (%) (Auto) 0.5 % Neutrophils # (Auto) 7.8 TH/MM3 Lymphocytes # (Auto) 1.4 TH/MM3 Monocytes # (Auto) 0.7 TH/MM3 Eosinophils # (Auto) 0.1 TH/MM3 Basophils # (Auto) 0.1 TH/MM3 CBC Comment DIFF FINAL Differential Comment Blood Urea Nitrogen 9 MG/DL Creatinine 0.96 MG/DL Random Glucose 138 MG/DL Total Protein 7.7 GM/DL Albumin 4.3 GM/DL Calcium Level 9.0 MG/DL Magnesium Level 2.2 MG/DL Alkaline Phosphatase 104 U/L Aspartate Amino Transf (AST/SGOT) 13 U/L Alanine Aminotransferase (ALT/SGPT) 26 U/L Total Bilirubin 1.1 MG/DL Sodium Level 135 MEQ/L Potassium Level 4.0 MEQ/L Chloride Level 100 MEQ/L Carbon Dioxide Level 27.2 MEQ/L Anion Gap 8 MEQ/L Estimat Glomerular Filtration Rate 86 ML/MIN C-Reactive Protein LESS THAN 0.29 MG/DL Lipase 101 U/L Urine Color YELLOW Urine Turbidity CLEAR Urine pH 6.0 Urine Specific [place] 1.010 Urine Protein NEG mg/dL Urine Glucose (UA) NEG mg/dL Urine Ketones NEG mg/dL Urine Occult Blood NEG Urine Nitrite NEG Urine Bilirubin NEG Urine Urobilinogen 2.0 MG/DL Urine Leukocyte Esterase NEG Urine RBC 1 /hpf Urine WBC 1 /hpf Urine Mucus FEW /lpf Microscopic Urinalysis Comment CULT NOT INDICATED MDM Medical Decision Making Medical Screen Exam Complete: Yes Emergency Medical Condition: Yes Medical Record Reviewed: Yes Differential Diagnosis Viral versus bacterial gastroenteritis, versus appendicitis, versus urinary tract infection, versus pyelonephritis, versus kidney stone, versus bowel obstruction Narrative Course During the course of the patient's emergency department visit, the patient's history, examination, and differential diagnosis were reviewed with the patient. The patient was placed on a nutrition therapist with oximetry and frequent blood pressure monitoring. The patient had IV access obtained and blood work sent for analysis. The patient was initially provided normal saline 1 L IV fluid bolus which was repeated 1, Compazine 5 mg IV for nausea The patient's laboratory studies were reviewed and remarkable for a white count that is within normal limits at 9.9, hemoglobin 18.9, platelets 272 with neutrophils 78.4. CMP is remarkable for sodium of 135, GFR of 86, glucose 138, total bilirubin 1.1, AST 13, C-reactive protein is less than 0.29, lipase 101, urinalysis within normal limits Radiology studies were reviewed and remarkable for Last Impressions Abdomen/Pelvis CT 02/17/18 0416 Signed Impressions: Service Date/Time: Saturday, February 17, 2018 04:33 - CONCLUSION: 1. No acute findings. Stable fat containing umbilical hernia. No obstruction, free fluid or free air. Luisito Calderon MD Chest X-Ray 02/17/18 6096 Signed Impressions: Service Date/Time: Saturday, February 17, 2018 02:41 - CONCLUSION: No acute disease. No significant change has occurred. Luisito Calderon MD The patient on reexamination is reportedly feeling improved. The patient was able to tolerate an oral rehydration challenge. The patient will be discharged home with a prescription for Zofran. The patient is instructed to follow-up with his primary care physician for reexamination in 3 days. If he does not have a primary care physician, he is given the name of the [facility] for follow-up for his primary care. The patient is resting comfortably and feels better, is alert and in no distress. The patient's results and examination findings were discussed with the patient. The repeat examination is unremarkable and benign. The history, exam, diagnostic testing, and current condition do not suggest any significant pathology to warrant further testing, continued ED treatment, admission, or surgical evaluation at this point. The vital signs have been stable. The patient does not have uncontrollable pain, intractable vomiting, or other significant symptoms. The patient's condition is stable and appropriate for discharge. The patient will pursue further outpatient evaluation with a primary care physician or other designated or consulting physician as indicated in the discharge instructions. The patient expressed understanding and was agreeable with this plan. Diagnosis Primary Impression: Abdominal pain Qualified Codes: R10.33 - Periumbilical pain Additional Impressions: Vomiting Qualified Codes: R11.2 - Nausea with vomiting, unspecified Diarrhea Qualified Codes: R19.7 - Diarrhea, unspecified Referrals: [facility] 3 days Primary Care Physician 3 days Patient Instructions: Abdominal Pain (ED), Acute Diarrhea (ED), Acute Nausea and Vomiting (ED), General Instructions Additional Instructions: The patient is instructed that if he develops any new or worsening signs or symptoms, he should report back immediately to the emergency department for reevaluation. Med/Other Pt SpecificInfo: Prescription(s) given Scripts Ondansetron Odt (Zofran Odt) 4 Mg Tab 4 MG SL Q6HR Y for Nausea/Vomiting, #7 TAB 0 Refills Prov: Beulah Paulino MD 02/17/18 Disposition: 01 DISCHARGE HOME Condition: Stable Beulah Paulino MD February 17, 2018 02:44
[2018-02-17] MEDS ORDERED: PROCHLORPERAZINE INJ 10 MG/2 ML VIAL IV PUSH ONE (02:45)
[2018-02-17] MEDS ORDERED: SODIUM CHLOR 0.9% 1000 ML INJ 1,000 ML IV ONE ×2 (02:45→04:15)
--- NOTE | 2018-02-17 02:51 | RADRPT ---
EXAM DATE/TIME: 02/17/2018 02:41 [facility] COMPARISON: CHEST SINGLE AP, November 05, 2017, 9:49. INDICATIONS : Chest and abdominal pain. MEDICAL HISTORY : diabetic. SURGICAL HISTORY : None. ENCOUNTER: Initial ACUITY: 1 day PAIN SCORE: 8/10 LOCATION: Bilateral lower chest FINDINGS: A single view of the chest demonstrates the lungs to be symmetrically aerated without evidence of mas s, infiltrate or effusion. The cardiomediastinal contours are unremarkable. Osseous structures are intact. CONCLUSION: No acute disease. No significant change has occurred. Luisito Calderon MD on February 17, 2018 at 2:49 Board Certified Radiologist. This report was verified electronically.
[2018-02-17 03:20] LABS: AUTOMATED NEUTROPHIL # 7.8 TH/MM3 (1.8-7.7); BASOPHIL # 0.1 TH/MM3 (0-0.2); BASOPHIL % 0.5 % (0.0-2.0); EOSINOPHIL # 0.1 TH/MM3 (0-0.4); EOSINOPHIL % 0.6 % (0.0-4.0); HEMOGLOBIN 18.9 GM/DL (13.0-17.0); LYMPH % 13.7 % (9.0-44.0); LYMPHOCYTE # 1.4 TH/MM3 (1.0-4.8); MEAN CELL VOLUME 83.2 FL (80.0-100.0); MEAN CORPUSCULAR HEMOGLOBIN 29.1 PG (27.0-34.0); MEAN PLATELET VOLUME 8.2 FL (7.0-11.0); MONO % 6.8 % (0.0-8.0); MONOCYTE # 0.7 TH/MM3 (0-0.9); NEUT % 78.4 % (16.0-70.0); PLATELET COUNT 272 TH/MM3 (150-450); RED CELL DISTRIBUTION WIDTH 12.7 % (11.6-17.2); WHITE BLOOD COUNT 9.9 TH/MM3 (4.0-11.0)
[2018-02-17 03:59] LABS: BLOOD UREA NITROGEN 9 MG/DL (7-18); CREATININE 0.96 MG/DL (0.60-1.30); GLOMERULAR FILTRATION RATE 86 ML/MIN (>89); GLUCOSE,RANDOM 138 MG/DL (74-106); TOTAL PROTEIN 7.7 GM/DL (6.4-8.2)
[2018-02-17 04:00] LABS: ALBUMIN 4.3 GM/DL (3.4-5.0); ALKALINE PHOSPHATASE 104 U/L (45-117); ALT (GPT) 26 U/L (12-78); AST (GOT) 13 U/L (15-37); BICARBONATE 27.2 MEQ/L (21.0-32.0); C-REACTIVE PROTEIN LESS THAN 0.29 MG/DL (0.00-0.30); CHLORIDE 100 MEQ/L (98-107); MAGNESIUM 2.2 MG/DL (1.5-2.5); SODIUM (NA) 135 MEQ/L (136-145); TOTAL BILIRUBIN ADULT 1.1 MG/DL (0.2-1.0)
--- NOTE | 2018-02-17 04:56 | RADRPT ---
EXAM DATE/TIME: 02/17/2018 04:33 [facility] COMPARISON: CT ABDOMEN & PELVIS W CONTRAST, January 01, 2017, 4:04. INDICATIONS : Abdomen pain. IV CONTRAST: 75 cc Omnipaque 350 (iohexol) IV ORAL CONTRAST: No oral contrast ingested. RADIATION DOSE: 9.96 CTDIvol (mGy) MEDICAL HISTORY : None SURGICAL HISTORY : Appendectomy. ENCOUNTER: Initial ACUITY: 1 day PAIN SCALE: 5/10 LOCATION: Bilateral abdomen. TECHNIQUE: Volumetric scanning of the abdomen and pelvis was performed. Using automated exposure control and ad justment of the mA and/or kV according to patient size, radiation dose was kept as low as reasonably achievable to obtain optimal diagnostic quality images. DICOM format image data is available electro nically for review and comparison. FINDINGS: Lung bases are clear. No acute findings in the liver, spleen, adrenals, kidneys or pancreas. No calci fied gallstones or biliary ductal dilatation. There is a small fat containing umbilical hernia. No bowel obstruction. No free air or free fluid. No adenopathy. CONCLUSION: 1. No acute findings. Stable fat containing umbilical hernia. No obstruction, free fluid or free air. Luisito Calderon MD on February 17, 2018 at 4:51 Board Certified Radiologist. This report was verified electronically.
[2018-02-17 05:02] LABS: BILIRUBIN, URINE NEG (NEG); BLOOD, URINE NEG (NEG); GLUCOSE,URINE NEG (NEG); KETONE, URINE NEG (NEG); MUCUS URINE FEW /lpf (OCC); NITRITE,URINE NEG (NEG); URINE COLOR YELLOW (YELLW/STRAW); URINE LEUKOCYTE ESTERASE NEG (NEG)
[2018-02-17] MEDS ORDERED: ZOFR4TAB3 SL (05:04)
[2018-02-17] MEDS ORDERED: IOHEXOL 350 MG/ML 10 ML VIAL (for RAD DIAG) IVCONTRAST ONE (05:06)
== END 2018-02-17 06:16 | disposition home or self-care (01) ==
LOC: NEPE 01:49
DX: R10.33 Periumbilical pain (principal); R11.2 Nausea with vomiting, unspecified; R19.7 Diarrhea, unspecified; K42.9 Umbilical hernia without obstruction or gangrene; F17.200 Nicotine dependence, unspecified, uncomplicated; E11.9 Type 2 diabetes mellitus without complications; Z79.84 Long term (current) use of oral hypoglycemic drugs
CPT/HCPCS: 71045; 74177; 80053; 81001; 83690; 83735; 85025; 86140; 96361; 96374; 99285; J0780; J7030; Q9967

== ENCOUNTER 2018-02-27 08:38 | Emergency (ER) | payer BC ==
[~2018-02-27] VITALS: Ht 165.1 cm; Wt 105.0 kg
[~2018-02-27 08:38] MED LIST changes: +ZOFR4TAB3 SL
[2018-02-27 08:45] VITALS: BP 145/90; PULSE 92; RESP 16; TEMP 98.6; O2SAT 97
[2018-02-27 09:23] LABS: AUTOMATED NEUTROPHIL # 8.1 TH/MM3 (1.8-7.7); BASOPHIL % 0.5 % (0.0-2.0); EOSINOPHIL % 0.4 % (0.0-4.0); HEMATOCRIT 50.4 % (39.0-51.0); HEMOGLOBIN 17.6 GM/DL (13.0-17.0); LYMPHOCYTE # 1.3 TH/MM3 (1.0-4.8); MEAN CELL VOLUME 83.2 FL (80.0-100.0); MEAN CORPUSCULAR HEMOGLOBIN 29.1 PG (27.0-34.0); MEAN PLATELET VOLUME 8.5 FL (7.0-11.0); MONO % 6.3 % (0.0-8.0); MONOCYTE # 0.6 TH/MM3 (0-0.9); NEUT % 79.8 % (16.0-70.0); PLATELET COUNT 264 TH/MM3 (150-450); RED BLOOD COUNT 6.05 MIL/MM3 (4.50-5.90); RED CELL DISTRIBUTION WIDTH 12.7 % (11.6-17.2); WHITE BLOOD COUNT 10.1 TH/MM3 (4.0-11.0)
[2018-02-27 09:30] LABS: BILIRUBIN, URINE NEG (NEG); BLOOD, URINE NEG (NEG); GLUCOSE,URINE NEG (NEG); KETONE, URINE 40 mg/dL (NEG); MUCUS URINE FEW /lpf (OCC); NITRITE,URINE NEG (NEG); SQUAMOUS EPITHELIAL CELL URINE <1 /hpf (0-5); URINE COLOR YELLOW (YELLW/STRAW); URINE LEUKOCYTE ESTERASE NEG (NEG)
[2018-02-27 09:43] LABS: ALBUMIN 4.1 GM/DL (3.4-5.0); AST (GOT) 10 U/L (15-37); BICARBONATE 23.4 MEQ/L (21.0-32.0); BLOOD UREA NITROGEN 9 MG/DL (7-18); CALCIUM 8.9 MG/DL (8.5-10.1); CHLORIDE 101 MEQ/L (98-107); GLOMERULAR FILTRATION RATE 93 ML/MIN (>89); GLUCOSE,RANDOM 171 MG/DL (74-106); SODIUM (NA) 135 MEQ/L (136-145)
[2018-02-27 09:47] LABS: ALKALINE PHOSPHATASE 104 U/L (45-117); ALT (GPT) 25 U/L (12-78); TOTAL BILIRUBIN ADULT 0.7 MG/DL (0.2-1.0); TOTAL PROTEIN 7.5 GM/DL (6.4-8.2)
[2018-02-27] MEDS: FAMOTIDINE 20 MG TAB PO ONE ×2 (10:45→10:54)
[2018-02-27] MEDS: SODIUM CHLOR 0.9% 1000 ML INJ 1,000 ML IV ONE ×2 (10:45→10:54)
[2018-02-27] MEDS: METOCLOPRAMIDE INJ 10 MG in SODIUM CHLORIDE 0.9% INJ 50 ML IV ONE ×2 (10:45→10:54)
--- NOTE | 2018-02-27 11:13 | PD ---
HPI Chief Complaint: GI Complaint Time Seen by Provider: 10:29 Travel History International Travel<30 days: No Contact w/Intl Traveler<30days: No Traveled to known affect area: No History of Present Illness HPI Patient is a 42-year-old male who comes in complaining of nausea, vomiting pain. He says this is been going on for the past 12 days. He was seen here earlier in the month for this, had labs and a CAT scan done that showed no source for his symptoms. He was discharged with a prescription for Zofran, which she says was helping. He says his abdomen is "sore" from vomiting. He does report having small bowel movements. He is a diabetic and has had gastroparesis he says before he was diagnosed and placed on medication. He says he has not had any issues with gastroparesis since then. He did eat a hamburger last night, but he says that this caused him to vomit. He says now he is just vomiting bile. His last episode of vomiting was before coming in. Severity is mild to moderate. PFSH Past Medical History Diabetes: Yes Patient Takes Glucophage: No Diminished Hearing: No Immunizations Current: No Tetanus Vaccination: Unknown Influenza Vaccination: No Past Surgical History Appendectomy: Yes (30 YEARS AGO) Social History Alcohol Use: No Tobacco Use: Yes (1 PPD) Substance Use: No Allergies-Medications (Allergen,Severity, Reaction): Coded Allergies: metformin (Unverified Allergy, Severe, VOMITING, 02/27/18) Reported Meds & Prescriptions Reported Meds & Active Scripts Active Zofran Odt (Ondansetron Odt) 4 Mg Tab 4 Mg SL Q6HR PRN Glyburide 5 Mg Tab 5 Mg PO DAILY Take with meals at the same time each day Review of Systems Except as stated in HPI: all other systems reviewed are Neg General / Constitutional: No: Fever, Chills HENT: No: Headaches, Lightheadedness Cardiovascular: No: Chest Pain or Discomfort Respiratory: No: Shortness of Breath Gastrointestinal: Positive: Nausea, Vomiting Musculoskeletal: No: Myalgias, Edema Skin: No Rash, No Change in Pigmentation Neurologic: No: Weakness, Dizziness Physical Exam Narrative GENERAL: Awake and alert, in no acute distress. SKIN: Focused skin assessment warm/dry. No wounds or signs of infection. HEAD: Atraumatic. Normocephalic. EYES: Pupils equal and round. No scleral icterus. ENT: Mucous membranes pink and moist. NECK: Trachea midline. No JVD. CARDIOVASCULAR: Regular rate and rhythm. No murmur appreciated. RESPIRATORY: No accessory muscle use. Clear to auscultation. Breath sounds equal bilaterally. GASTROINTESTINAL: Abdomen soft, non-tender, nondistended. MUSCULOSKELETAL: No obvious deformities. No clubbing. No cyanosis. No edema. NEUROLOGICAL: Awake and alert. No obvious cranial nerve deficits. Motor grossly within normal limits. Normal speech. PSYCHIATRIC: Appropriate mood and affect; insight and judgment normal. Data Data Last Documented VS Vital Signs Date Time Temp Pulse Resp B/P (MAP) Pulse Ox O2 Delivery O2 Flow Rate FiO2 02/27/18 08:45 98.6 92 16 145/90 (108) 97 Orders Orders Complete Blood Count With Diff (02/27/18 08:54) Comprehensive Metabolic Panel (02/27/18 08:54) Urinalysis - C+S If Indicated (02/27/18 08:54) Iv Access Insert/Monitor (02/27/18 08:54) Oxygen Administration (02/27/18 08:54) Oximetry (02/27/18 08:54) Lipase (02/27/18 08:54) Sodium Chlor 0.9% 1000 Ml Inj (Ns 1000 M (02/27/18 10:45) Metoclopramide Inj (Reglan Inj) (02/27/18 10:45) Famotidine (Pepcid) (02/27/18 10:45) Labs Laboratory Tests Test 02/27/18 09:01 White Blood Count 10.1 TH/MM3 Red Blood Count 6.05 MIL/MM3 Hemoglobin 17.6 GM/DL Hematocrit 50.4 % Mean Corpuscular Volume 83.2 FL Mean Corpuscular Hemoglobin 29.1 PG Mean Corpuscular Hemoglobin Concent 35.0 % Red Cell Distribution Width 12.7 % Platelet Count 264 TH/MM3 Mean Platelet Volume 8.5 FL Neutrophils (%) (Auto) 79.8 % Lymphocytes (%) (Auto) 13.0 % Monocytes (%) (Auto) 6.3 % Eosinophils (%) (Auto) 0.4 % Basophils (%) (Auto) 0.5 % Neutrophils # (Auto) 8.1 TH/MM3 Lymphocytes # (Auto) 1.3 TH/MM3 Monocytes # (Auto) 0.6 TH/MM3 Eosinophils # (Auto) 0.0 TH/MM3 Basophils # (Auto) 0.0 TH/MM3 CBC Comment DIFF FINAL Differential Comment Urine Color YELLOW Urine Turbidity CLEAR Urine pH 6.0 Urine Specific Britton 1.013 Urine Protein TRACE mg/dL Urine Glucose (UA) NEG mg/dL Urine Ketones 40 mg/dL Urine Occult Blood NEG Urine Nitrite NEG Urine Bilirubin NEG Urine Urobilinogen LESS THAN 2.0 MG/DL Urine Leukocyte Esterase NEG Urine RBC 1 /hpf Urine WBC LESS THAN 1 /hpf Urine Squamous Epithelial Cells <1 /hpf Urine Mucus FEW /lpf Microscopic Urinalysis Comment CULT NOT INDICATED Blood Urea Nitrogen 9 MG/DL Creatinine 0.90 MG/DL Random Glucose 171 MG/DL Total Protein 7.5 GM/DL Albumin 4.1 GM/DL Calcium Level 8.9 MG/DL Alkaline Phosphatase 104 U/L Aspartate Amino Transf (AST/SGOT) 10 U/L Alanine Aminotransferase (ALT/SGPT) 25 U/L Total Bilirubin 0.7 MG/DL Sodium Level 135 MEQ/L Potassium Level 3.8 MEQ/L Chloride Level 101 MEQ/L Carbon Dioxide Level 23.4 MEQ/L Anion Gap 11 MEQ/L Estimat Glomerular Filtration Rate 93 ML/MIN Lipase 130 U/L MDM Medical Decision Making Medical Screen Exam Complete: Yes Emergency Medical Condition: Yes Medical Record Reviewed: Yes Differential Diagnosis Gastritis versus gastroparesis versus dehydration versus electrolyte abnormality Narrative Course Patient is a 42-year-old male who comes in complaining of nausea and vomiting. Exam shows abdomen is soft and nontender. Patient had a CAT scan of his abdomen and pelvis performed on February 14 that showed no acute abnormalities. Labs performed in triage show no acute abnormalities. IV fluids and Reglan ordered to help improve patient's symptoms. I explained to the patient that I did not feel repeating a CAT scan was necessary as the one performed 2 weeks ago showed no acute issues and at this point I feel the extra radiation would be more harmful to him than helpful. I do believe patient may be having some degree of gastroparesis based on his symptoms. I explained this to the patient. I also explained that he needs to follow-up with a seam stayer to have endoscopy performed to discover the source of his symptoms. Patient and his seemed okay with this explanation. However, as the nurse was getting medication ready to give to the patient he and his became very angry and upset and insisted they were leaving. When I tried to discuss with the patient why he was upset, he and his refused to speak with me. They decided to leave. Diagnosis Primary Impression: Nausea & vomiting Qualified Codes: R11.2 - Nausea with vomiting, unspecified Patient Instructions: General Instructions Departure Forms: Tests/Procedures Disposition: 07 AGAINST MEDICAL ADVICE Darby Weinstein MD February 27, 2018 11:12
== END 2018-02-27 11:14 | disposition left against medical advice (07) ==
LOC: NEPD 08:38
DX: R11.2 Nausea with vomiting, unspecified (principal); E11.9 Type 2 diabetes mellitus without complications; F17.200 Nicotine dependence, unspecified, uncomplicated; Z79.84 Long term (current) use of oral hypoglycemic drugs
CPT/HCPCS: 80053; 81001; 83690; 85025; 99283; J2765; J7030